=== PATIENT | female | born 1955 | race Caucasian/White ===

== ENCOUNTER 2025-02-13 11:04 | Outpatient (CLI) | payer MEDICARE, SELFPAY ==
--- NOTE | ~2025-02-13 | XR_ITS ---
EXAMINATION: XR shoulder RT min 2V, 02/13/2025 11:25 HELICOPTER MECHANIC HISTORY: M25.511 - Pain in right shoulder, NKI COMPARISON: No comparisons available. Findings: There is a remote appearing fracture of the humeral neck, no acute fracture is identified. Minimal degenerative changes. Soft tissues unremarkable. Impression: No acute fracture or malalignment. Reviewed, dictated and finalized at location P. COPTER MECHANIC Impression: No acute fracture or malalignment.
--- NOTE | ~2025-02-13 | XR_ITS ---
EXAMINATION: XR shoulder LT min 2V, 02/13/2025 11:25 RESEARCH & ANALYTICS MANAGER HISTORY: M25.512 - Pain in left shoulder , NKI COMPARISON: No comparisons available. Findings: No acute fracture or malalignment. No significant degenerative changes. Soft tissues unremarkable. Impression: No acute fracture or malalignment. Reviewed, dictated and finalized at location P. ARCH & ANALYTICS MANAGER Impression: No acute fracture or malalignment.
--- OUTSIDE RECORDS SUMMARY | 2025-02-13 11:49 | XMS_ITS | Clinical Summary ---
Author Organization [facility] Address [address] [place] [address] Care Team Providers Care Testing Machine Operator Name Role Phone Rosalie Jones Primary Care Provider [phone] Source Comments [facility],non-owned Affiliates and Associated Physician Practices is amultiple site organization consisting of ambulatory clinics and hospital sitesin [place], [place], [place] and [place]. This disclosure is being madepursuant to the Care Everywhere program and may not contain all information available regarding this patient. Last updated 17.[facility] Allergies Active Allergy Reactions Criticality Noted Date Comments Docosahexaenoic Acid, Dha Unknown 08/16/2018 Gemfibrozil Unknown 11/10/2015 Molds & Smuts Unknown 11/06/2014 Niacin Unknown 11/10/2015 Ezyeb-1-Unra Ethyl Esters Unknown 11/10/2015 Silicon Rash Medium 03/21/2019 Sulfa Drugs Urticaria Medium 04/10/2018 Medications * Be aware that medications may not be up to date on this document. Alwaysverify current medications with the patient. omeprazole (PRILOSEC) 40 MG capsule Take by mouth 2 times daily as needed 12/20/2017 Active levothyroxine (SYNTHROID) 75 MCG tablet Take by mouth once daily 12/31/2017 Active cetirizine (ZYRTEC) 10 MG tablet 04/24/2018 Active melatonin 10 MG capsule 12/04/2018 Active traZODone (DESYREL) 50 MG tablet Take 50 mg by mouth at bedtime Active VITAMIN E/D-ALPHA PO Active multivitamin daily tablet Take 1 tablet by mouth daily with food Active probiotic (PROBIOTIC) CAPS capsule Take 1 tablet by mouth once daily Active nefazodone (SERZONE) 100 MG tablet Take 100 mg by mouth 2 times daily 10/18/2019 Active vitamin B-12 (CYANOCOBALAMIN ) 1000 MCG/15ML liquid Take 1,200 mcg by mouth once daily Active Active Problems Problem Noted Date Diagnosed Date Neuropathy Cervical radiculopathy at C8 Bilateral carpal tunnel syndrome Immunizations Immunization Administration Dates Next Due INFLUENZA VACCINE 12/21/2017,03/04/2016,03/03/20 15 INFLUENZA VACCINE, QUADR. (F LUZONE; FLULAVAL; FLUARIX; AFLURIA QUADRIVALENT; 6MO+), 0.5 ML (IIV4) 12/08/2018 Zoster Hzv Vacc Recombinant Inj Im 10/28/2017 Family History Medical History Relation Name Comments None Known Brother None Known Father None Known Maternal Aunt None Known Maternal Grandfather None Known Maternal Grandmother None Known Maternal Uncle None Known Mother None Known Other None Known Paternal Aunt None Known Paternal Grandfather None Known Paternal Grandmother None Known Paternal Uncle None Known Sister Asthma Neg Hx CVA Neg Hx Cancer - Breast Neg Hx Cancer - Other Neg Hx Cancer - Skin, Melanoma Neg Hx Cancer - Skin, Non Melanoma Neg Hx Eczema Neg Hx Hemophilia Neg Hx Psoriasis Neg Hx Relation Name Status Comments Brother Father Maternal Aunt Maternal Grandfather Maternal Grandmother Maternal Uncle Mother Other Paternal Aunt Paternal Grandfather Paternal Grandmother Paternal Uncle Sister Social History Tobacco Use Types Packs/Day Years Used Date Smoking Tobacco: Never Smokeless Tobacco: Never Tobacco Cessation:Counseling Given: No Alcohol Use Standard Drinks/Week Comments No 0 (1 standard drink = 0.6 oz pur e alcohol) Comments No Sex and Gender Information Value Date Recorded Sex Assigned at Not on file Legal Sex Female 4:21 PM CDT Gender Identity Not on file Sexual Orientation Not on file Last Filed Vital Signs Vital Sign Reading Time Taken Comments Blood Pressure 139/84 01/23/2019 2:09 PM MATERIAL INSPECTOR Pulse 76 01/23/2019 2:09 PM MATERIAL INSPECTOR Temperature 36.2 C (97.2 F) 01/10/2018 8:53 AM CDT Respiratory Rate - - Oxygen Saturation - - Inhaled Oxygen Concentration - - Weight 87.5 kg (193 lb) 01/23/2019 2:09 PM MATERIAL INSPECTOR Height 172.7 cm (5' 8) 01/23/2019 2:09 PM MATERIAL INSPECTOR Body Mass Index 29.35 01/23/2019 2:09 PM MATERIAL INSPECTOR Plan of Treatment Health Maintenance Due Date Last Done Comments BONE DENSITY TESTING 1955 COLOGUARD (AGES 45-75) - COLON CA SCREENING 1956 COLON MONITORING 1956 COLONOSCOPY - COLON CA SCREENING 1956 CT COLONOGRAPHY - COLON CA SCREENING 1955 Colorectal Cancer Screening 1955 FIT - COLON CA SCREENING 1956 FLEX SIG - COLON CA SCREENING 1955 HEPATITIS C SCREENING 09/09/1974 DTAP/TDAP/TD VACCINES (1 - Tdap) 09/14/1975 PNEUMOCOCCAL VACCINE 50+ (1 of 1 - PCV) 2006 ZOSTER VACCINE (2 of 2) 12/23/2017 10/28/2017 SCREENING FOR DIABETES 02/20/2021 02/20/2018, 2017 MAMMOGRAM 09/05/2021 09/06/2019 LIPID TESTING 02/20/2023 02/20/2018 DEPRESSION SCREENING 03/21/2024 COVID-19 VACCINE ( - season) 2024 06/17/2020, 05/27/2020 INFLUENZA VACCINE (#1) 2024 , 12/08/2018, 12/21/2017, Additional history exists Respiratory Syncytial Virus (RSV) Vaccine Pt: or over 60 yrs (1 - 1-dose 75+ series) 09/14/2031 HEPATITIS B VACCINE Aged Out No longe r eligible based on patient's age to complete this topic HIB VACCINE Aged Out No longer eligi ble based on patient's age to complete this topic HPV VACCINE Aged Out No longer eligi ble based on patient's age to complete this topic MENINGOCOCCAL (Group B) VACCINE SHARED DECISION-MAKING Aged Out No longer eligible based on patient's age to complete this topic MENINGOCOCCAL GROUPS A/C/Y/W VACCINE Aged Out No longer eligible based on patient's age to complete this topic Procedures Procedure Name Priority Date/Time Associated Diagnosis Comments COMPREHENSIVE METABOLIC PANEL Routine 02/20/2018 2:23 PM MATERIAL INSPECTOR Radiculopathy of cervical region Spinal stenosis of cervical region Bilateral carpal tunnel syndrome LIPID PROFILE Routine 02/20/2018 2:23 PM [facility] Radiculopathy of cervical region Spinal stenosis of cervical region Bilateral carpal tunnel syndrome from Last 3 Months or Most Recently Relevant to Health Maintenance Results * (ABNORMAL) COMPREHENSIVE METABOLIC PANEL (02/20/2018 2:23 PM [facility]) BUN 10 7 - 26 mg/dL 02/20/2018 3:14 PM [facility] Creatinine 1.0 0.6 - 1.2 mg/dL 02/20/2018 3:14 PM [facility] Sodium 139 136 - 145 mmol/L 02/20/2018 3:14 PM [facility] Potassium 3.6 3.5 - 4.5 mmol/L 02/20/2018 3:14 PM [facility] Chloride 104 98 - 107 mmol/L 02/20/2018 3:14 PM [facility] CO2 26 22 - 29 mmol/L 02/20/2018 3:14 PM [facility] Glucose 88 70 - 115 mg/dL 02/20/2018 3:14 PM [facility] Calcium 10.3(H) 8.4 - 10.2 mg/dL 02/20/2018 3:14 PM [facility] Protein Total 7.5 6.0 - 8.3 g/dL 02/20/2018 3:14 PM [facility] Albumin 4.2 3.4 - 5.0 g/dL 02/20/2018 3:14 PM [facility] Bilirubin Total 0.9 0.2 - 1.2 mg/dL 02/20/2018 3:14 PM [facility] Alkaline Phosphatase 105 40 - 150 Units/L 02/20/2018 3:14 PM [facility] ALT 39 0 - 55 Units/L 02/20/2018 3:14 PM [facility] AST 30 5 - 34 Units/L 02/20/2018 3:14 PM [facility] Anion Gap 13 8 - 18 02/20/2018 3:14 PM [facility] BUN/Creatinine Ratio 10 7 - 23 02/20/2018 3:14 PM [facility] Osmolality Calculated 286 270 - 300 mOsm/kg 02/20/2018 3:14 PM [facility] Albumin/Globulin Ratio 1.3 1.1 - 2.3 02/20/2018 3:14 PM [facility] eGFR 56(L) >60 mL/min/1.7 3 m2 02/20/2018 3:14 PM [facility] Blood BLOOD SPECIMEN / Unknown Lab Venipuncture / Unknown 02/20/2018 2:23 PM MATERIAL INSPECTOR 02/20/2018 2:34 PM MATERIAL INSPECTOR Samia Barajas MD LAB - CHEMISTRY ORDERABLES Final Result [address] [phone] * (ABNORMAL) LIPID PROFILE (02/20/2018 2:23 PM MATERIAL INSPECTOR) Cholesterol Total 190 <200 mg/dL 02/20/2018 3:14 PM [facility] HDL 57 >40 mg/dL 02/20/2018 3:14 PM [facility] Comment: ATP III Classification of HDL Cholesterol: <40 mg/dL: Considered a major risk factor. >60 mg/dL: Considered a negative risk factor. LDL Calculated 110(H) <100 mg/dL 02/20/2018 3:14 PM [facility] Comment: ATP III Classification of LDL Cholesterol: <100 mg/dL: Optimal 100 - 129 mg/dL: Near Optimal/Above Optimal 130 - 159 mg/dL: Borderline High 160 - 189 mg/dL: High >190 mg/dL: Very High Triglycerides 115 <150 mg/dL 02/20/2018 3:14 PM [facility] Comment: ATP III Classification of Triglycerides: <150 mg/dL: Normal 150 - 199 mg/dL: Borderline High 200 - 400 mg/dL: High >500 mg/dL: Very High Blood BLOOD SPECIMEN / Unknown Lab Venipuncture / Unknown 02/20/2018 2:23 PM MATERIAL INSPECTOR 02/20/2018 2:34 PM MATERIAL INSPECTOR Samia Barajas MD LAB - CHEMISTRY ORDERABLES Final Result [facility] [address] [phone] from Last 3 Months or Most Recently Relevant to Health Maintenance Insurance [facility] MEDICARE [employer] MED[employer]ARE Care Teams Testing Machine Operator Relationship Specialty Start Date End Date Rosalie Jones DO [address] [place] [address] PCP - General Family Medicine 02/08/18
--- OUTSIDE RECORDS SUMMARY | 2025-02-13 11:49 | XMS_ITS | Encounter Summary ---
Author Organization [facility] Address [address] [place] [address] Care Team Providers Care Sheep Shearer Name Role Phone Rosalie Jones DO Primary Care Provider [phone] Rosalie Jones DO Unavailable [phone] Maria L Rutledge RN Unavailable [phone] Megan Nance MD Primary Care Provider Encounter Details Date Type Department Care Team (Late st Contact Info) Description 01/21/2020 Prep for Procedure [facility]-Ad[facility] Testing [address] [place] [id number] John Jalloh MD [address] [id number] Social History Tobacco Use Types Packs/Day Years Used Date Smoking Tobacco: Never Smokeless Tobacco: Never Alcohol Use Standard Drinks/Week Comments No 0 (1 standard drink = 0.6 oz pur e alcohol) AUDIT-C Answer Date Recorded Frequency of Alcohol Consumption Never 02/14/2018 Average Number of Drinks Not on file 018 Frequency of Binge Drinking Not on file 01/20 PHQ-2 Answer Date Recorded PHQ-2 Score 0 06/19/2018 Education Answer Date Recorded What is the highest level of school you have completed or the highest degree you have received? 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 No / Unsure 01/16/2020 12:23 PM CDT documented as of this encounter Plan of Treatment Not on file documented as of this encounter Results * (ABNORMAL) PRE-SURGICAL/PRE-PROCEDURE CORONAVIRUS (COVID 19) (01/21/2020 10:10 AM GENERAL OFFICE ASSOCIATE) CORONAVIRUS SARS COV 2 PCR (RESP) DETECTED(A) NOT DETECTED 01/22/2020 12:05 PM GENERAL OFFICE ASSOCIATE [facility] Comment: A Detected result is considered a positive test result for COVID-19. This indicates that RNA from SARS-CoV-2 (formerly 2019-nCoV) was detected, and the patient is infected with the virus and presumed to be contagious. If requested by public health authority, specimen will be sent for additional testing. Please review the Fact Sheets and FDA authorized labeling available for health care providers and patients using the following websites: https://www.[employer].com/home/Covid-19/HCP/NAAT/fact-sheet2 https://www.[employer].Acupera/home/Covid-19/Patients/NAAT/ fact-sheet2 This test has been authorized by the FDA under an Emergency Use Authorization (EUA) for use by authorized laboratories. Due to the current public health emergency, [facility] is receiving a high volume of samples from a wide variety of swabs and media for COVID-19 testing. In order to serve patients during this public health crisis, samples from appropriate clinical sources are being tested. Negative test results derived from specimens received in non-commercially manufactured viral collection and transport media, or in media and sample collection kits not yet authorized by FDA for COVID-19 testing should be cautiously evaluated and the patient potentially subjected to extra precautions such as additional clinical monitoring, including collection of an additional specimen. Methodology: Nucleic Acid Amplification Test (NAAT) includes RT-PCR or TMA Additional information about COVID-19 can be found at the [facility] website: www.[employer].Acupera/Covid19. Test performed at [facility] [address] [id number] Director: ARLEY NELSON DO,MPH FIRST TEST YES 01/21/2020 1:00 PM GENERAL OFFICE ASSOCIATE [facility] EMPLOYED IN HEALTHCARE NO 01/21/2020 1:00 PM GENERAL OFFICE ASSOCIATE [facility] SYMPTOMATIC DEFINED BY CDC NO 01/21/2020 1:00 PM GENERAL OFFICE ASSOCIATE [facility] DATE OF SYMPTOM ONSET NO 01/21/2020 1:11 PM GENERAL OFFICE ASSOCIATE [facility] HOSPITALIZATION STATUS NO 01/21/2020 1:00 PM GENERAL OFFICE ASSOCIATE [facility] PATIENT IN ICU NO 01/21/2020 1:00 PM GENERAL OFFICE ASSOCIATE [facility] UNKNOWN 01/21/2020 1:00 PM GENERAL OFFICE ASSOCIATE [facility] UNKNOWN 01/21/2020 1:11 PM GENERAL OFFICE ASSOCIATE [facility] PATIENT'S RACE WHITE OR 01/21/2020 1:00 PM GENERAL OFFICE ASSOCIATE [facility] ETHNICITY NONHISPANIC 01/21/2020 1:00 PM GENERAL OFFICE ASSOCIATE [facility] SOURCE (QST) NASOPHARYNGEAL SWAB 01/21/2020 1:00 PM GENERAL OFFICE ASSOCIATE [facility] NASOPHARYNGEAL SWAB / Unknown 01/21/2020 10:10 AM GENERAL OFFICE ASSOCIATE us John Jalloh MD MICROBIOLOGY - GENERAL ORDERA BLES Final Result [facility] [address] [place] [address], [place] [phone] [facility] [employer] [facility] [address] [address] [address], [place] documented in this encounter Visit Diagnoses Diagnosis Preoperative testing- Primary Preoperative examination, unspecified documented in this encounter Additional Health Concerns Infection Onset Date Last Indicated Resolved Time COVID-19 Rule Out 01/21/2020 01/21/2020 01/22/2020 12:05 PM GENERAL OFFICE ASSOCIATE COVID-19 Confirmed Comment:Resolved as 10 days symptom free for surgery 01/21/2020 01/21/2020 02/20/2020 12:02 PM GENERAL OFFICE ASSOCIATE documented as of this encounter Care Teams Sheep Shearer Relationship Specialty Start Date End Date Rosalie Jones DO [address] [place] [address] PCP - General FAMILY PRACTICE 03/31/18 11/18/20 Megan Nance MD [address] [place] [address] PCP - General INTERNAL MEDICINE 11/19/20 Rosalie Jones DO [address] [place] [address] FAMILY PRACTICE 03/31/18 11/18/20 Maria L Rutledge, RN [address] [facility] [address] [place] [address] Banquet Attendant (Ambulatory) REGISTERED NURSE 11/15/19 11/18/20 documented as of this encounter
--- OUTSIDE RECORDS SUMMARY | 2025-02-13 11:49 | XMS_ITS | Encounter Summary ---
Author Organization [facility] Address [address] [place] [address] Care Team Providers Care Social Worker Assistant Name Role Phone Rosalie Jones DO Primary Care Provider [phone] Rosalie Jones DO Unavailable [phone] Maria L Rutledge RN Unavailable [phone] Megan Nance MD Primary Care Provider [phone] Encounter Details Date Type Department Care Team (Late st Contact Info) Description 10/05/2019 CustExt Message Enc [facility] Family Medicine - [place] [address] [place] [address] Rosalie Jones DO [address] [place] [address] RE: Question Social History Tobacco Use Types Packs/Day Years [...] degree (e.g., MA, MS, Abbie, MEd, WATER SOFTENER SERVICE SUPERVISOR, GAIL) 05/25/2018 Comments No Sex and Gender Information Value Date Recorded Sex Assigned at Not on file Legal Sex Female 8:02 PM CDT Gender Identity Not on file Sexual Orientation Not on file COVID-19 Exposure Response Date Recorded In the last month, have you been in contact with someone who was confirmed or suspected to have Coronavirus / COVID-19? Unable to assess 10/05/2019 11:00 AM CDT documented as of this encounter Plan of Treatment Not on file documented as of this encounter Visit Diagnoses Not on filedocumented in this encounter Additional Health Concerns Infection Onset Date Last Indicated Resolved Time COVID-19 Rule Out 11/07/2019 11/07/2019 11/09/2019 3:08 AM CDT COVID-19 Rule Out 01/21/2020 01/21/2020 01/22/2020 12:05 PM PARAKEET RAISER COVID-19 Confirmed Comment:Resolved as 10 days symptom free for surgery 01/21/2020 01/21/2020 02/20/2020 12:02 PM PARAKEET RAISER documented as of this encounter Care Teams Social Worker Assistant Relationship Specialty Start Date End Date Rosalie Jones DO [address] [place] [address] PCP - General FAMILY PRACTICE 03/31/18 11/18/20 Megan Nance MD [address] [place] [address] PCP - General INTERNAL MEDICINE 11/19/20 Rosalie Jones DO [address] [place] [address] FAMILY PRACTICE 03/31/18 11/18/20 Maria L Rutledge, RN [address] [place] [address] Assembly Line Robot Operator (Ambulatory) REGISTERED NURSE 11/15/19 11/18/20 documented as of this encounter
--- OUTSIDE RECORDS SUMMARY | 2025-02-13 11:49 | XMS_ITS | Clinical Summary ---
Author Organization [facility] Address [address] [place] [address] Care Team Providers Care Analytical Technician Name Role Phone Megan Faust MD Primary Care Provider [phone] Allergies Active Allergy Reactions Criticality Noted Date Comments Cefdinir Rash Low 11/05/2019 Gemfibrozil Nausea Only 11/10/2015 Guanfacine Other (see comment) 03/02/2018 sleepiness, weight gain, and nose bleed. Molds & Smuts Unknown 11/06/2014 Niacin Unknown 08/16/2018 Niacin Er (Antihyperlipidemic) Unknown 11/10/2015 Nickel Swelling Silicon Rash Low 01/15/2020 Sulfa Antibiotics Hives Medium 04/10/2018 Sulfamethoxazole-Trimet hoprim Unknown,GI Upset Low 03/28/2017 stomach issue Medications trazodone 50 MG tablet Take 50 mg by mouth nightly at bedtime. 06/30/19 18 Active Probiotic Product (PROBIOMAX DAILY DF OR) Take 1 tablet by mouth daily. Active Cyanocobalamin (VITAMIN B-12) 1000 MCG/15ML Liquid Place 1,200 mcg under the tongue daily. Active Melatonin 10 MG Cap Take 10 mg by mouth nightly as needed (insomnia). Active omeprazole 40 MG capsuleIndications :Gastroesophageal reflux disease without esophagitis Take 1 capsule (40 mg total) by mouth 2 (two) times daily. 180 capsule 3 11/21/19 20 Active Additional Information Patient taking differently:40 mg OralDaily, Reported on 11/27/2019 Minoxidil (ROGAINE) 2 % Solution Apply topically daily as needed. Active Multiple Vitamin (DAILY VITAMIN OR) Take 1 tablet by mouth daily. Active calcium-vitamin D-vitamin K 500-500-40 MG-UNT-MCG Chew Tab Chew 1 tablet by mouth daily. Active levothyroxine 75 MCG tabletIndications: Acquired hypothyroidism Take 1 tablet (75 mcg total) by mouth daily. 90 tablet 2 04/30/19 Active desvenlafaxine ER 25 MG TABLET SR 24 HR 24 hr tablet 04/22/19 Active famotidine 20 MG tablet 06/03/19 Active ketorolac 0.5 % ophthalmic solution 06/10/19 21 Active ofloxacin 0.3 % ophthalmic solution 06/10/19 Active prednisoLONE acetate 1 % ophthalmic suspension SHAKE LIQUID AND INSTILL 1 DROP SURGICAL EYE THREE TIMES DAILY BEGINNING AFTER SURGERY 06/10/19 21 Active hydrOXYzine 10 MG tablet 08/29/19 21 Active Cyclobenzaprine HCl (CYCLOBENZAPRINE 20 TD) 09/13/19 21 Active COMPRESSION STOCKINGSIndicatio ns:Fibromyalgia Wear daily as needed for swelling 6 Container 3 10/17/19 Active Active Problems Problem Noted Date Diagnosed Date Lumbar radiculopathy 09/18/2020 Headache 06/16/2020 GERD with apnea 06/16/2020 Sinusitis 06/16/2020 Heart palpitations 12/08/2018 Overview (12/08/2018): had about a month ago Cervical radiculopathy 05/25/2018 Overview (05/25/2018): Added automatically from request for surgery [id number] Neuropathy 04/20/2018 Cervical radiculopathy at C8 04/20/2018 Bilateral carpal tunnel syndrome 04/20/2018 Strain of tendon of lower back 12/23/2017 Chronic fatigue and malaise 09/16/2017 Excessive sweating 09/16/2017 Nausea 09/16/2017 Vertigo 09/16/2017 AMERICA (obstructive sleep apnea) 08/24/2017 BMI 29.0-29.9,adult 07/18/2017 Daytime somnolence 06/29/2017 Insomnia 06/29/2017 Paresthesia and pain of both upper extremities 0 06/29/2017 Cyst, ovarian 06/08/2017 Memory difficulties 06/08/2017 Thoracic outlet syndrome 06/08/2017 Fatigue, unspecified type 04/22/2016 Chronic pain of both wrists 11/26/2015 Fibromyalgia 11/10/2015 De Quervain's tenosynovitis 02/18/2015 Overview (02/11/2018): Transitioned From: Tendonitis Pes equinus, acquired 01/14/2015 Osteoporosis 12/24/2014 Overview (02/11/2018): Transitioned From: Osteopenia Osteoarthritis of left knee, unspecified osteoarthritis type 12/12/2014 Anxiety disorder 11/07/2014 Gastroesophageal reflux disease 11/07/2014 Hypothyroidism 11/07/2014 IBS (irritable bowel syndrome) 11/07/2014 Major depression, recurrent 11/07/2014 Resolved Problems Problem Noted Date Diagnosed Date Resolved Date Surgical followup 05/17/2018 08/22/2018 Other closed extra-articular fracture of distal end of left radius, initial encounter 03/31/2018 08/22/2018 Hypertension 12/21/2017 06/16/2020 Postmenopausal bleeding 10/04/2017 0606/2018 Urinary, incontinence, stress female 10/04/2017 06/16/2020 Sleep disorder 07/18/2017 08/22/2018 Talipes calcaneovalgus 01/14/201508/22 Immunizations Immunization Administration Dates Next Due Fluzone 6 Months+ Quad (0.5 mL Prefilled Syringe) 12/08/2018 Influenza (Generic) 12/21/2017,03/04/2016,2014 Influenza Adult (Generic) 12/25/2019,05/2017,03/04/2016,2014 PFIZER COVID-19 (ORIGINAL FORMULATION, PURPLE CAP) mRNA, LNP-S, PF, 30 MCG/0.3 ML DOSE 06/17/2020,05/27/2020 Shingrix 10/28/2017 Family History Medical History Relation Comments Alzheimers Father COPD Father Cancer Father lung Heart Attack Father Heart Disease Father mi Hypertension Father Lung Cancer Father Open Heart Father Stroke Father Diabetes Maternal Grandfather Lung Cancer Maternal Grandfather Alzheimers Maternal Grandmother Colon Cancer Maternal Grandmother Diabetes Maternal Grandmother Heart Disease Maternal Grandmother Stroke Maternal Grandmother Alzheimers Mother Heart Disease Mother afib Hypertension Mother Parkinson's Disease Mother Stroke Mother No Known Problems Sister Relation Status Comments Father (Age 81) Maternal Grandfather Maternal Grandmother Mother Alive Sister Alive atrial fibrillat ion Social History Tobacco Use Types Packs/Day Years [...] 01/20 PHQ-2 Answer Date Recorded PHQ-2 Score - If the patient scores above 3, please move on to questions 3-9 6 06/16/2020 Education Answer Date Recorded What is the highest level of school you have completed or the highest degree you have received? 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 Not on file Not on file Last Filed Vital Signs Vital Sign Reading Time Taken Comments Blood Pressure 134/82 10/14/2020 12:12 PM CDT Pulse 70 10/14/2020 12:06 PM CDT Temperature 36.3 C (97.4 F) 10/14/2020 11:47 AM CDT Respiratory Rate 20 10/14/2020 12:06 PM CDT Oxygen Saturation 97% 10/14/2020 12:06 PM CDT Inhaled Oxygen Concentration - - Weight 89.1 kg (196 lb 6.4 oz) 10/14/2020 11:47 AM CDT Height 172.7 cm (5' 8) 10/14/2020 11:47 AM CDT Body Mass Index 29.86 10/14/2020 11:47 AM CDT Plan of Treatment Health Maintenance Due Date Last Done Comments DTaP, Tdap and Td Vaccines (1 - Tdap) 09/14/1975 Pneumococcal Vaccine: 50+ Years (2 of 2 - PCV) 01/30/2013 01/31/2012 Zoster Vaccines (2 of 2) 02/22/2018 12/28/2017, 10/19 Annual Medicare Wellness Visit 2021 Mammogram Screening 07/24/2024 07/24/2022, 11/19/2020, 09/06/2019, Additional history exists COVID-19 Vaccine ( season) 2024 06/17/2020, 05/27/2020 Influenza Adult (#1) 2024 01/01/2022, 02/16/2021, 12/25/2019, Additional history exists Colorectal Cancer Screening Colonoscopy (10 Years) 11/24/2026 11/24/2016 RSV Immunization or 60+ Years (1 - 1-dose 75+ series) 09/14/2031 Hepatitis C Completed 11/04/2020, 11/21/2014 Dexa Scan (General) Completed 06/26/2021, 06/26/2021, 12/30/2014 Hepatitis A Vaccines Aged Out No long er eligible based on patient's age to complete this topic Meningococcal B Vaccine Aged Out No l onger eligible based on patient's age to complete this topic Meningococcal Vaccine Aged Out No carole laila eligible based on patient's age to complete this topic RSV Immunizations Under 20 Months Aged Out No longer eligible based on patient's age to complete this topic Medical Devices Implanted Type Area Cardiovascular Disease Specialist Device Identifier Shelf Expiration Date Model / Serial / Lot Arthrex Volar Distal Radius Plates, Narrow Left Implanted:Qty: 1 on 04/04/2018 by Lee Roland MD at [facility] Plate Left: Radius [employer] [id number]- 03 / / [id number]- 03 Arthrex 3.5mm Low Profile Screw, Non-Locking, Titanium, Cortical Implanted:Qty: 2 on 04/04/2018 by Lee Roland MD at [facility] Screw Left: Radius [employer] AR-8935-14 / [id number] / AR-[id number] Arthrex 2.4mm Yohana Screws, Titanium, Locking Implanted:Qty: 2 on 04/04/2018 by Lee Roland MD at [facility] Screw Left: Radius [employer] AR-8724V-14 / / [id number]-14 Arthrex 2.4mm Yohana Screws, Titanium, Locking Implanted:Qty: 2 on 04/04/2018 by Lee Roland MD at [facility] Screw Left: Radius [employer] AR-8724V-16 / / [id number]-16 Arthrex 2.4mm Yohana Screws, Titanium, Locking Implanted:Qty: 1 on 04/04/2018 by Lee Roland MD at [facility] Screw Left: Radius [employer] AR-8724V-18 / / [id number]-18 Arthrex 2.4mm Yohana Screws, Titanium, Locking Implanted:Qty: 1 on 04/04/2018 by Lee Roland MD at [facility] Screw Left: Radius [employer] AR-8724V-20 / / [id number]-20 Arthrex 3.5mm Low Profile Screw, Non-Locking, Titanium, Cortical Implanted:Qty: 1 on 04/04/2018 by Lee Roland MD at [facility] Screw Left: Radius [employer] AR-8935-16 / / [id number] Procedures Procedure Name Priority Date/Time Associated Diagnosis Comments MG SCREENING W MALLY LEOPOLDO DIGI Routine 07/24/2022 3:00 PM CDT Encounter for screening mammogram for malignant neoplasm of breast COLONOSCOPY Routine 11/24/2016 12:00 AM CDT BONE DENSITY/DEXA Routine 12/30/2014 10: 08 AM CDT HEPATITIS C ANTIBODY Routine 11/21/2014 8:46 AM CDT from Last 3 Months or Most Recently Relevant to Health Maintenance Results * MG SCREENING W MALLY LEOPOLDO DIGI (07/24/2022 3:00 PM CDT) Anatomical Region Laterality Modality Breast Bilateral Mammography 07/26/2022 6:08 PM CDT Narrative 07/26/2022 6:11 PM CDT Examination: Screening bilateral mammogram with 3-D tomosynthesis Clinical history: No family history of breast cancer. No present breast related complaints. Comparison: 11/19/2020, 09/06/2019, 03/06/2019, 08/30/2018, 08/18/2018, 02/07/2017 Technique: Digital screening mammography of both breasts was performed. 3-D tomosynthesis technique was also performed. This study was read with the assistance of computer-aided detection system. Tissue density: The breast tissue is heterogeneously dense, which may obscure small masses. Findings: No suspicious masses, malignant appearing calcifications, skin thickening or other abnormalities are present. No significant change from the prior exam. IMPRESSION: No suspicious mammographic findings. Recommendation: 1. Routine Screening, Bilateral Assessment: ACR BI-RADS 2 - BENIGN FINDING(S) Comments: A negative or benign mammography report should not delay follow-up or biopsy of a clinically significant finding or palpable abnormality. Regions of dense breast tissue may obscure findings on mammogram. Ordered By: MEGAN FAUST Interpreted By: Vlad Bartlett MD, 07/26/2022 6:08 PM Megan Faust MD MAMMO Final Result * Colonoscopy (11/24/2016 12:00 AM CDT) 11/24/2016 11/24/2016 Narrative [facility] TO EPIC CONVERSION - 11/24/2016 12:00 AM CDT Documented hx of procedure Procedure Note , Generic ConversionMD - 01/22/2018 Documented hx of procedure us Generic Conversion Md [facility] PROCEDURE ORDERABLES Final Result [facility] TO EPIC CONVERSION * BONE DENSITY/DEXA (12/30/2014 10:08 AM CDT) Anatomical Region Laterality Modality Bone Bone Density 12/30/2014 10:0 8 AM CDT 12/30/2014 10:08 AM CDT Narrative 12/30/2014 10:13 AM CDT NGA CRAIG ADMIT/SERVICE DATE: 12/30/14 ACCT: [id number] DISCHARGE DATE: : 1955 SEX: F ORD SITE: [facility] PT TYPE: REG CLI ORDERING MD: SHEY FERNANDEZ MD STUDY DATE REPORT # ORDER # EXT ORDER ID 12/30/14 [id number] PROC CODE: BONEDENSAX PROCEDURE DESCRIPTION: XR BONE DENSITY AXIAL IMPRESSION: EXAMINATION: BONE DENSITY AXIAL EXAM DATE/TIME: 12/30/2014 9:30 AM CLINICAL HISTORY: POSTMENOPAUSAL COMPARISON: NONE FINDINGS: DEXA BONE DENSITOMETRY THE BONE MINERAL DENSITY (BMD) WAS DETERMINED BY DUAL-ENERGY X-RAY ABSORPTIOMETRY, THE RESULTS ARE FOLLOWS: AP LUMBAR SPINE L2 THROUGH L4 BMD PATIENT (GM/SQCM): 1.144 T-SCORE (STANDARD DEVIATIONS FROM YOUNG ADULT PEAK BONE DENSITY): -0.5 BILATERAL FEMORAL NECK: BMD PATIENT (GM/SQCM): 0.83 T-SCORE (STANDARD DEVIATIONS FROM YOUNG ADULT PEAK BONE DENSITY): -0.8 TOTAL FEMUR: BMD PATIENT (GM/SQCM): 0.900 T-SCORE (STANDARD DEVIATIONS FROM YOUNG ADULT PEAK BONE DENSITY): -0.8 LUMBAR SPINE BONE DENSITY: NORMAL FEMUR BONE DENSITY: NORMAL ELECTRONICALLY SIGNED BY: DOMINIK RODRIGUEZ12/30/2014 10:09 AM Procedure Note Amrita Muro MD - 01/12/2018 NGA CRAIG ADMIT/SERVICE DATE:12/30/14 ACCT: [id number] DISCHARGE DATE: : 1955 SEX: F ORD SITE: [facility] PT TYPE: REG CLI ORDERING MD:SHEY FERNANDEZ MD STUDY DATE REPORT # ORDER # EXT ORDER ID 12/30/14 [id number] PROC CODE: BONEDENSAX PROCEDURE DESCRIPTION: XR BONE DENSITY AXIAL IMPRESSION: EXAMINATION: BONE DENSITY AXIAL EXAM DATE/TIME: 12/30/2014 9:30 AM CLINICAL HISTORY: POSTMENOPAUSAL COMPARISON: NONE FINDINGS: DEXA BONE DENSITOMETRY THE BONE MINERAL DENSITY (BMD) WAS DETERMINED BY DUAL-ENERGY X-RAY ABSORPTIOMETRY, THE RESULTS ARE FOLLOWS: AP LUMBAR SPINE L2 THROUGH L4 BMD PATIENT (GM/SQCM): 1.144 T-SCORE (STANDARD DEVIATIONS FROM YOUNG ADULT PEAK BONE DENSITY): -0.5 BILATERAL FEMORAL NECK: BMD PATIENT (GM/SQCM): 0.83 T-SCORE (STANDARD DEVIATIONS FROM YOUNG ADULT PEAK BONE DENSITY): -0.8 TOTAL FEMUR: BMD PATIENT (GM/SQCM): 0.900 T-SCORE (STANDARD DEVIATIONS FROM YOUNG ADULT PEAK BONE DENSITY): -0.8 LUMBAR SPINE BONE DENSITY: NORMAL FEMUR BONE DENSITY: NORMAL ELECTRONICALLY SIGNED BY: DOMINIK RODRIGUEZ12/30/2014 10:09 AM Shey Fernandez MD DEXA Final Res ult * HEPATITIS C ANTIBODY (11/21/2014 8:46 AM CDT) [facility] HEPATITIS C AB NON-REACTIVE TESTING [place] [address] NR [facility] TO EPIC CONVERSION 11/21/2014 8:46 AM CDT 11/21/2014 8:46 AM CDT Narrative [facility] TO EPIC CONVERSION - 11/22/2014 5:35 PM CDT Result Communication: Discussed results with patient Shey Fernandez MD LABORATORY Final Res ult [facility] TO EPIC CONVERSION from Last 3 Months or Most Recently Relevant to Health Maintenance Insurance [employer] [facility] Member Subscriber Plan / Payer ( fective 2017-Present) Name:Nga Craig Relation to Subscriber:Self Name:Nga Craig Payer ID:Not on file Type:Not on file Address: [place] [id number] [facility] Member Subscriber Plan / Payer ( fective 2017-Present) Name:Nga Craig Relation to Subscriber:Self Name:Nga Craig Payer ID:Not on file Type:Not on file Address: [place] [id number] Advance Directives Documents on File Type Date Recorded Patient Can Striper Expl anation Power of Information Resources Director 02/21/2020 9:56 AM Care Teams Analytical Technician Relationship Specialty Start Date End Date Megan Faust MD PCP - General INTERNAL MEDICINE 11/19/20
--- OUTSIDE RECORDS SUMMARY | 2025-02-13 11:49 | XMS_ITS | Encounter Summary ---
Author Organization [facility] Address [address] [place] [address] Care Team Providers Care Aircraft Systems Repairer Name Role Phone Rosalie Jones DO Primary Care Provider [phone] Rosalie Jones DO Unavailable [phone] Maria L Rutledge RN Unavailable [phone] Megan Nance MD Primary Care Provider [phone] Encounter Details Date Type Department Care Team (Late st Contact Info) Description 04/04/2019 [employer] Message Enc [facility] Family Medicine - [place] [address], [address] [place] [address] Rosalie Jones DO [address] [place] [address] RE: Question Social History Tobacco Use Types [...] Master's degree (e.g., MA, MS, Abbie, MEd, FORM SETTER STEEL PAN FORMS, GAIL) 05/25/2018 Comments No Sex and Gender Information Value Date Recorded Sex Assigned at Not on file Legal Sex Female 8:02 PM CDT Gender Identity Not on file Sexual Orientation Not on file documented as of this encounter Progress Notes * Rosalie Jones DO - 04/06/2019 1:30 PM CST So we have not actually specifically tested Sjogren's as a lab test. Usually she will have elevatedinflammatory markers but we can do the specific blood tests for Sjogren's. I'll place the order ER SULFATE documented in this encounter Plan of Treatment Not on file documented as of this encounter Visit Diagnoses Not on filedocumented in this encounter Additional Health Concerns Infection Onset Date Last Indicated Resolved Time COVID-19 Rule Out 11/07/2019 11/07/2019 11/09/2019 3:08 AM CDT COVID-19 Rule Out 01/21/2020 01/21/2020 01/22/2020 12:05 PM COOKER SULFATE COVID-19 Confirmed Comment:Resolved as 10 days symptom free for surgery 01/21/2020 01/21/2020 02/20/2020 12:02 PM COOKER SULFATE documented as of this encounter Care Teams Aircraft Systems Repairer Relationship Specialty Start Date End Date Rosalie Jones DO [address] [place], [place] [address] PCP - General FAMILY PRACTICE 03/31/18 11/18/20 Megan Nance MD [address] [place] [address] PCP - General INTERNAL MEDICINE 11/19/20 Rosalie Jones DO [address] [place] [address] FAMILY PRACTICE 03/31/18 11/18/20 Maria L Rutledge RN [address] [place] [address] Diesel Pile Driver Operator (Ambulatory) REGISTERED NURSE 11/15/19 11/18/20 documented as of this encounter
--- OUTSIDE RECORDS SUMMARY | 2025-02-13 11:49 | XMS_ITS | Encounter Summary ---
Author Organization [facility] Address [address] [place] [address] Care Team Providers Care Bank Accountant Name Role Phone Elliott Trivedi MD Unavailable [phone] Samia Barajas MD Unavailable Jarad Cardoza MD Unavailable [phone] Viv Starks MD Primary Care Provider [phone] Power Gaston MD Unavailable [phone] Ximena Schultz NP Primary Care Provider [phone] Encounter Details Date Type Department Care Team (Late st Contact Info) Description 01/09/2025 Results Follow-Up [facility] Internal Medicine [address] [place] [phone] Viv Starks MD [address] [place] [id number] Lipid panel, TSH, T4, free, Additional followed-up results: 4 Social History Tobacco Use Types Packs/Day Years Used Date Smoking Tobacco: Never Passive Smoke Exposure: Never Smokeless Tobacco: Never Alcohol Use Standard Drinks/Week Comments Yes 0 (1 standard drink = 0.6 oz pur e alcohol) AUDIT-C Answer Date Recorded Q1: How often do you have a drink containing alcohol? Never 07/09/2024 Q2: How many drinks containi ng alcohol do you have on a typical day when you are drinking? Patient does not drink Q3: How often do you have si x or more drinks on one occasion? Never 07/09/2024 PHQ-2 Answer Date Recorded PHQ-2 Total Score (If total score is 3 or more points, staff should administer the PHQ-9) 3 07/18/2024 PHQ-9 Answer Date Recorded PHQ-9 Total Score 15 07/18/2024 Personal Safety Answer Date Recorded Have you ever been in or are you currently in a harmful physical or emotional relationship or is someone making you feel afraid or unsafe? Denies 03/11/2024 Comments No Sex and Gender Information Value Date Recorded Sex Assigned at Not on file Legal Sex Female 4:54 AM SUPERINTENDENT AMMUNITION STORAGE Gender Identity Not on file Sexual Orientation Not on file documented as of this encounter Plan of Treatment Not on file documented as of this encounter Goals Goal Patient Goal Type Associated Problems Recent Progress Patient-Stated? Author Short-term Goal 1A: (New) Pt to identify 3 ways in which her medical/physical health conditions negatively impact her emotional/mental health conditions (and vice versa). Care Plan Problem 1: Problems with health conditions No Kaylee Griffin LCSW Note: Short-term Goal 1A: Pt to identify 3 ways in which her medical/physical health conditions negatively impact her emotional/mental health conditions (and vice versa). Start date 01/29/2022 - Initial expected end date 02/26/2022 Short-term Goal 2A: (New) Pt to identify and report 3 ways in which she grieves the life quality she would have had/might have had if she did not have these medical/physical health conditions. Care Plan Problem 2: Problems with grief and loss No Kaylee Griffin LCSW Note: Short-term Goal 2A: Pt to identify and report 3 ways in which she grieves the life quality she would have had/might have had if she did not have these medical/physical health conditions. Start date 01/29/2022 Initial Expected End Date: 02/26/2022 documented as of this encounter Visit Diagnoses Not on filedocumented in this encounter Additional Health Concerns Active Problems Noted Date Diagnosed Date Problem 1: Problems with health conditions 02/22 Note: Problem 1: Problems with health conditions Onset date 02/19/2022 Problem 1 STATEMENT Pt is challenged with 43 medical/health conditions. Including from [facility] Pts chart: Cardiac & Vasculature, Endocrine & Metabolic, ENT, Gastro-intestinal & Abdominal, Musculoskeletal & Injuries, Genitourinary & Reproductive , Neurological, Pulmonary & Pneumonia, Sleep, Other: Fatigue, Chronic Fatigue & Malaise, Chest Pressure, Abnormal CT of Chest and Chronic Excessive Sweating. These health conditions negatively impact emotional/mental health and functional ability. Due to symptoms of : _x_Depression _x__ Anxiety _x_Psychosis ___Emotional Dysregulation ___Other: See list of medical/health conditions. As Evidenced by Depression sx: sleep habits affected and memory difficulties. Pt self-rated Depression intensity level as ranging from 3-to-4 on the 1-to-10pt high scale. As Evidenced by Anxiety sx: concentration problems. Pt self-rated Anxiety intensity level as ranging from 3-to-4 on the 1-to-10pt high scale. As Evidenced by Anger sx: Pt self-rated Anger intensity level as ranging from 2-to-3 on the 1-to-10pt high scale. As complicated by Physical Pain sx: Pt self-rated Physical Pain intensity level as ranging from 5-to-6 on the 1-to-10pt high scale. Well Service Floorperson Goal/Discharge Criteria: Patient to better adjust to her health problems especially with increased awareness of the degree to which they negatively impact emotoinal mental health: Depression, Anxiety, Anger symptoms and intensity levels. Pt will significantly reduce the overall frequency and intensity of psychiatric condition symptoms and improve daily functioning ability. Pt to learn, practice and apply coping skills to better manage her emotional/mental psychiatric condition. Discharge: Review for discharge in 90 days (June 17, 2022). 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 Psychophysiological Insomnia Neurological R53.83 Chronic Fatigue R53.82 Chronic Fatigue and Malaise R07.89 Chest Pressure [address]93[address] of the Chest R61 Chronic Excessive Sweating Problem 2: Problems with grief and loss 02/23/20 22 Note: Problem 2: Problems with grief & loss Onset date 02/19/2022 Problem 2 STATEMENT Pt has been diagnosed and treated for multiple psychiatric conditions for decades. Pt has experienced the challenges inherent with 43 medical/health conditions. Including from [facility] Pts chart: Cardiac & Vasculature, Endocrine & Metabolic, ENT, Gastro-intestinal & Abdominal, Musculoskeletal & Injuries, Genitourinary & Reproductive , Neurological, Pulmonary & Pneumonia, Sleep, Other: Fatigue, Chronic Fatigue & Malaise, Chest Pressure, Abnormal CT of Chest and Chronic Excessive Sweating. The consequences of these conditions have profoundly affected the ability to which this Pt has been able to fully participate and enjoy in life to the degree which would have been possible without these conditions. Grief for current impact of physical health on emotional/mental well-being added to the loss of the potential life chances/life choices Pt would have enjoyed without these 41 conditions (and on-going complications) is the area of focus in treatment and recovery. Pts ability to accept and adjust is high; Pt is intelligent and insightful. Some of the grief/loss has been acknowledged and expressed; Pt encouraged to continue to explore, identify and report continued processing of this profound grief/loss through HOPS tx. Due to symptoms of : _x_Depression _x__ Anxiety _x_Psychosis ___Emotional Dysregulation ___Other: See list of medical/health conditions. As Evidenced by Depression sx: sleep habits affected and memory difficulties. Pt self-rated Depression intensity level as ranging from 3-to-4 on the 1-to-10pt high scale. As Evidenced by Anxiety sx: concentration problems. Pt self-rated Anxiety intensity level as ranging from 3-to-4 on the 1-to-10pt high scale. As Evidenced by Anger sx: Pt self-rated Anger intensity level as ranging from 2-to-3 on the 1-to-10pt high scale. As complicated by Physical Pain sx: Pt self-rated Physical Pain intensity level as ranging from 5-to-6 on the 1-to-10pt high scale. Assisted Goal/Discharge Criteria: Patient to better adjust to her health problems especially with increased awareness of the degree to which they negatively impact emotoinal mental health: Depression, Anxiety, Anger symptoms and intensity levels. Pt will significantly reduce the overall frequency and intensity of psychiatric condition symptoms and improve daily functioning ability. Pt to learn, practice and apply coping skills to better manage her emotional/mental psychiatric condition. Discharge: Review for discharge in 90 days (June 17, 2022). 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 Psychophysiological Insomnia Neurological R53.83 Chronic Fatigue R53.82 Chronic Fatigue and Malaise R07.89 Chest Pressure R93.[address] of the Chest R61 Chronic Excessive Sweating documented as of this encounter Care Teams Bank Accountant Relationship Specialty Start Date End Date Viv Starks MD [address] [facility] [address] [place] [address] PCP - General Internal Medicine 04/08/23 01/15/25 Ximena Schultz NP [address] [facility] [address] [place] [address] PCP - General Internal Medicine 01/16/25 Elliott Trivedi MD [address] [facility] [address] [place] [address] Consulting Physician Rheumatology 11/26/20 Samia Barajas MD [address] [facility] [address] [place] [address] Referring Physician Neurology 11/26/20 Jarad Cardoza MD [address] [facility] [address] [place] [address] Referring Physician Internal Medicine 11/26/20 Power Gaston MD [address] [place] [address] Referring Physician Psychiatry 03/02/24 Sherrie Chase, [facility] [address] [place] [address] Dry Cleaning Manager Infectious Diseases 03/08/22 documented as of this encounter
--- OUTSIDE RECORDS SUMMARY | 2025-02-13 11:49 | XMS_ITS | Encounter Summary ---
Author Organization [facility] Address [address] [place] [address] Care Team Providers Care Cytotechnologist Name Role Phone Rosalie Jones DO Primary Care Provider [phone] Rosalie Jones DO Unavailable [phone] Maria L Rutledge RN Unavailable [phone] Megan Nance MD Primary Care Provider [phone] Encounter Details Date Type Department Care Team (Late st Contact Info) Description 09/23/2020 Visioneered Image Systemst Message Enc [facility] Medical Group Multispecialty Care - [facility] [address] [facility], [address] [place] [address] Og Klein MD RE: Other Social History Tobacco Use Types Packs/Day Years [...] Master's degree (e.g., MA, MS, Abbie, MEd, DEAN OF FACULTY, GAIL) 05/25/2018 Comments No Sex and Gender [...] have Coronavirus / COVID-19? No / Unsure 09/17/2020 4:24 PM CDT documented as of this encounter Progress Notes * Anais Mast MA - 09/23/2020 2:28 PM CDT I put this on Dr. Klein's desk to review documented in this encounter Plan of Treatment Not on file documented as of this encounter Visit Diagnoses Not on filedocumented in this encounter Additional Health Concerns Assessment Noted Time PHQ-9 Depression Total Score: 17 021 8:23 AM CDT documented as of this encounter Care Teams Cytotechnologist Relationship Specialty Start Date End Date Rosalie Jones DO [address] [place] [address] PCP - General FAMILY PRACTICE 03/31/18 11/18/20 Megan Nance MD [address] [place] [address] PCP - General INTERNAL MEDICINE 11/19/20 Rosalie Jones DO [address] [place] [address] FAMILY PRACTICE 03/31/18 11/18/20 Maria L Rutledge, RN [address] [place] [address] Preschool Paraprofessional (Ambulatory) REGISTERED NURSE 11/15/19 11/18/20 documented as of this encounter
--- OUTSIDE RECORDS SUMMARY | 2025-02-13 11:49 | XMS_ITS | Encounter Summary ---
Author Organization [facility] Address [address] [place] [address] Care Team Providers Care Drop Hammer Pile Driver Operator Name Role Phone Rosalie Jones DO Primary Care Provider [phone] Rosalie Jones DO Unavailable [phone] Maria L Rutledge RN Unavailable [phone] Megan Nance MD Primary Care Provider [phone] Reason for Referral * Surgical (Routine) - Closed Specialty Diagnoses / Procedures Referred By Jesus lawton Referred To Contact Procedures Case request operating room: INJECTION EPIDURAL STEROID CERVICAL C5-6 Jo Fallon NP [address] [facility] [address] [place] [address] Phone: tel: [phone] fax: Referral ID Status Reason Start Date Expiration Date Visits Re quested Visits Authorized [id number] Closed 09/18/2020 10/19/2021 1 1 Encounter Details Date Type Department Care Team (Late st Contact Info) Description 09/18/2020 Prep for Procedure [facility] [place], [place] [id number] Jo Fallon NP [address] [facility] [address] [place] [phone] (Work) Social History Tobacco Use Types Packs/Day Years [...] Master's degree (e.g., MA, MS, Abbie, MEd, WINDOW GLAZIER, GAIL) 05/25/2018 Comments No Sex and Gender [...] as of this encounter Plan of Treatment Scheduled Orders Name Type Priority Associated Diagnoses Orde r Schedule Case request operating room: INJECTION EPIDURAL STEROID CERVICAL C5-6 Case Request Routine Once for 1 Occur rences starting 09/18/2020 until 09/18/2020 documented as of this encounter Visit Diagnoses Not on filedocumented in this encounter Additional Health Concerns Assessment Noted Time PHQ-9 Depression Total Score: 17 021 8:23 AM CDT documented as of this encounter Care Teams Drop Hammer Pile Driver Operator Relationship Specialty Start Date End Date Rosalie Jones DO [address] [place] [address] PCP - General FAMILY PRACTICE 03/31/18 11/18/20 Megan Nance MD [address] [place] [address] PCP - General INTERNAL MEDICINE 11/19/20 Rosalie Jones DO [address] [place] [address] FAMILY PRACTICE 03/31/18 11/18/20 Maria L Rutledge, RN [address] [facility] [address] [place] [address] Carpenter Maintenance (Ambulatory) REGISTERED NURSE 11/15/19 11/18/20 documented as of this encounter
--- OUTSIDE RECORDS SUMMARY | 2025-02-13 11:49 | XMS_ITS | Encounter Summary ---
Author Organization [facility] Care Team Providers Care Engraver Pantograph Name Role Phone No, Physician Primary Care Provider [phone] Rosalie Jones MD Primary Care Provider [phone] Rosalie Jones MD Primary Care Provider [phone] Elliott Trivedi MD Unavailable [phone] Samia Barajas MD Unavailable Jarad Cardoza MD Unavailable [phone] Macy Bailon DPT Unavailable [phone] Kaylee Verduzco OT Unavailable [phone] Nelda Chun MANUFACTURING EXECUTIVE Unavailable + [phone] Luis A Bell DO Primary Care Provider + Lily Kirkland RN Unavailable [phone] Viv Starks MD Primary Care Provider [phone] Armin Jessica MA Unavailable [phone] Power Gaston MD Unavailable [phone] Ximena Schultz NP Primary Care Provider + [phone] Encounter Details Date Type Department Care Team (Latest Contact Info) Description 11/10/2017 Orders Only [facility] CLINCON[facility] ProviderNaila MD [address] [place] [address] Social History Tobacco Use Types Packs/Day Years Used Date Smoking Tobacco: Never Comments Unknown Sex and Gender Information Value Date Recorded Sex Assigned at Not on file Legal Sex Female 4:54 AM PARACHUTIST/COMBATANT DIVER QUALIFIED Gender Identity Not on file Sexual Orientation Not on file documented as of this encounter Functional Status documented as of this encounter Plan of Treatment Not on file documented as of this encounter Procedures Procedure Name Priority Date/Time Associated Diagnosis Comments SCAN - PATHOLOGY 11/10/2017 12:0 0 AM CDT documented in this encounter Results * SCAN - PATHOLOGY (11/10/2017 12:00 AM CDT) Narrative 11/10/2017 12:00 AM CDT Ordered by an unspecified provider. Historical Provider Final Res ult documented in this encounter Visit Diagnoses Not on filedocumented in this encounter Additional Health Concerns Infection Onset Date Last Indicated Resolved Time COVID: Suspected 12/03/2020 12/03/2020 12/03/2020 1:31 PM CDT COVID: Suspected 12/14/2020 12/14/2020 12/14/2020 11:37 AM CDT COVID: Suspected 01/26/2023 01/26/2023 01/26/2023 8:12 PM PARACHUTIST/COMBATANT DIVER QUALIFIED COVID: Suspected 03/08/2024 03/08/2024 03/08/2024 5:09 PM PARACHUTIST/COMBATANT DIVER QUALIFIED COVID19 03/08/2024 03/08/2024 03/18/2024 3:05 AM PARACHUTIST/COMBATANT DIVER QUALIFIED COVID: Recovered Comment:Added based on recent COVID infection. 03/18/2024 03/19/2024 06/16/2024 3:06 AM C DT documented as of this encounter Care Teams Engraver Pantograph Relationship Specialty Start Date End Date No, Physician PCP - General 01/03/18 05/29/18 Rosalie Jones MD PCP - General 05/30/18 12/14/18 Rosalie Jones MD PCP - General Family Medicine 12/22/18 11/25/20 Luis A Bell DO [address] [facility] [address] [facility] [address] [place] [address] PCP - General Family Medicine 12/19/22 04/07/23 Viv Starks MD [address] [facility] [address] [place] [address] PCP - General Internal Medicine 04/08/23 01/15/25 Ximena Schultz, INA [address] [facility] [address] [place], [place] [id number] PCP - General Internal Medicine 01/16/25 Elliott Trivedi MD [address] [facility] [address] [place] [address] Consulting Physician Rheumatology 11/26/20 Samia Barajas MD [address] [facility] [address] [place] [address] Referring Physician Neurology 11/26/20 Jarad Cardoza MD [address] [facility] [address] [place] [address] Referring Physician Internal Medicine 11/26/20 Macy Bailon DPT [address] [facility] [address] [facility] [address] [place] [address] Physical Therapist Physical Therapy 12/11/21 01/24/22 Kaylee Verduzco OT [address] [facility] [address] [place] [address] Occupational Therapist Occupational Therapy 12/15/21 1 03/26/21 Nelda Chun, LÓPEZ [address] [facility] [address] [place] [address] Speech Language Pathologist Speech Therapy 08/10/22 09/05/22 Lily Kirkland, RN [address] [place] [address] [address] [place] [address] Administration Vice President 02/17/23 03/08/23 Armin Jessica MA [address] [facility] [address] [place] [address] ACO Care Relay Assembler 04/22/23 04/22/23 Power Gaston MD [address] [place] [address] Referring Physician Psychiatry 03/02/24 Sherrie Chase [address] [address] Machinery Mover Infectious Diseases 03/08/22 documented as of this encounter
--- OUTSIDE RECORDS SUMMARY | 2025-02-13 11:49 | XMS_ITS | Encounter Summary ---
Author Organization [facility] Address [address] [place] [address] Care Team Providers Care Heating And Ventilating Drafter Name Role Phone Rosalie Jones DO Primary Care Provider [phone] Rosalie Jones DO Unavailable [phone] Maria L Rutledge RN Unavailable [phone] Megan Nance MD Primary Care Provider [phone] Encounter Details Date Type Department Care Team (Late st Contact Info) Description 12/06/2019 Birchboxt Message Enc [facility] Medical [facility] Family Medicine - [place] [address] [facility] [address] [place] [address] Rosalie Jones DO [address] [facility] [address] [place] [address] RE: Referral Request Social History Tobacco Use Types Packs/Day Years [...] Master's degree (e.g., MA, MS, Abbie, MEd, PROCESSING SUPERVISOR, GAIL) 05/25/2018 Comments No Sex and [...] have Coronavirus / COVID-19? Unable to assess 12/03/2019 10:18 AM CDT documented as of this encounter Plan of Treatment Not on file documented as of this encounter Visit Diagnoses Not on filedocumented in this encounter Additional Health Concerns Infection Onset Date Last Indicated Resolved Time COVID-19 Rule Out 01/21/2020 01/21/2020 01/22/2020 12:05 PM PHONE BANKER COVID-19 Confirmed Comment:Resolved as 10 days symptom free for surgery 01/21/2020 01/21/2020 02/20/2020 12:02 PM PHONE BANKER documented as of this encounter Care Teams Heating And Ventilating Drafter Relationship Specialty Start Date End Date Rosalie Jones DO [address] [facility] [address] [place] [address] PCP - General FAMILY PRACTICE 03/31/18 11/18/20 Megan Nance MD [address] [facility] [address] [place] [address] PCP - General INTERNAL MEDICINE 11/19/20 Rosalie Jones DO [address] [facility] [address] [place] [address] FAMILY PRACTICE 03/31/18 11/18/20 Maria L Rutledge, RN [address] [place] [place] [address] Drawer Liner (Ambulatory) REGISTERED NURSE 11/15/19 11/18/20 documented as of this encounter
--- OUTSIDE RECORDS SUMMARY | 2025-02-13 11:49 | XMS_ITS | Clinical Summary ---
Author Organization [facility] [address] [facility] Address [address] [place] [address] Care Team Providers Care Top Lift Scourer Name Role Phone Elliott Trivedi MD Unavailable [phone] Samia Barajas MD Unavailable Jarad Cardoza MD Unavailable [phone] Power Gaston MD Unavailable [phone] Ximena Schultz NP Primary Care Provider [phone] Allergies Active Allergy Reactions Criticality Noted Date Comments Baclofen Other (See comments) Medium 03/19/2024 [place] like she was on fire in so much pain from head to toe Sulfamethoxazole-Trimetho prim Stomach upset Low 03/28/2017 Buspirone Anxiety Low 05/26/2023 Cefdinir Rash Medium 10/22/2019 Iodinated Contrast Media Nausea & Vomiting Low 04/21 BALANCE ISSUES Gemfibrozil Nausea only Low 11/10/2015 Guanfacine Other (See comments) Low 03/02/2018 sleepiness, weight gain, and nose bleeds Modafinil Entantiomers Agitation,Nausea only,Shortness of breath High 11/25/2022 Niacin Stomach upset Low 08/16/2018 Nickel Swelling Medium [place] 1-Voc-Nxs-Fish Oil Nausea only Low 10/11/2022 Povidone-Iodine Nausea only Low 12/30/2020 Silicone Hives,Rash Medium 05/15/2019 Sulfa (Sulfonamide Antibiotics) Hives Medium Family History of Allergy, Mother and Sister got hives with this med. Sulfamethizole Other (See comments) 08/24/2024 Tissue Adhesive Itching,Rash Medium 06/23/2023 Medications cetirizine 10 mg capsuleIndication s:Allergic Rhinitis Take 1 tablet by mouth every morning Active acetaminophen (TYLENOL) 500 mg tablet Take 2 tablets (1,000 mg total) by mouth every 6 (six) hours Patient taking 2 in the AM and 2 in the PM Active EPINEPHrine 0.3 mg/0.3 mL auto-injection syringeIndication s:Anaphylaxis Inject 0.3 mL (0.3 mg total) into the muscle as instructed once for 1 dose 0.3 mL Active alendronate (FOSAMAX) 70 mg tablet Take 1 tablet (70 mg total) by mouth every 7 days Take in the morning with a full glass of water, on an empty stomach, and do not take anything else by mouth or lie down for 1 hour. 12 tablet 3 025 2025 Active spironolactone (ALDACTONE) 25 mg tablet Take 1 tablet (25 mg total) by mouth daily 90 tablet 3 025 2025 Active minoxidiL (LONITEN) 2.5 mg tabletIndications :hypertension Take 1 tablet (2.5 mg total) by mouth daily 30 tablet 11 025 2025 Active gentamicin (GARAMYCIN) 0.1 % ointmentIndicatio ns:Erosio interdigitalis blastomycetica Apply topically 3 (three) times a day Mix with ketoconazole and apply between toes 15 g 1 Active levothyroxine (SYNTHROID) 50 mcg tablet Take 1 tablet by mouth once daily 90 tablet Active cholecalciferol (VITAMIN D-3) 2000 unit capsule Take 1 capsule (2,000 Units total) by mouth daily Active solriamfetoL (Sunosi) 150 mg tabletIndications :long COVID, extreme fatigue Take 1 tablet (150 mg total) by mouth every morning 30 tablet 1 025 2025 Active traZODone (DESYREL) 50 mg tabletIndications :insomnia associated with depression Take 1 tablet (50 mg total) by mouth nightly 30 tablet 2 025 2025 Active ketoconazole (NIZORAL) 2 % cream APPLY CREAM TOPICALLY TWICE DAILY 15 g Active solriamfetoL (Sunosi) 150 mg tabletIndications :long COVID, extreme fatigue Take 1 tablet (150 mg total) by mouth every morning 023 2024 Discontinued(R eorder) traZODone (DESYREL) 50 mg tabletIndications :insomnia associated with depression Take 1 tablet (50 mg total) by mouth nightly 023 2024 Discontinued(R eorder) ketoconazole (NIZORAL) 2 % cream APPLY CREAM TOPICALLY TWICE DAILY 024 2024 Discontinued famotidine (PEPCID) 20 mg tablet Take 1 tablet by mouth twice daily; Duration: 30 025 2024 Discontinued(P atient Reported) pregabalin (LYRICA) 25 mg capsule Take 1 capsule (25 mg total) by mouth 2 (two) times a day 60 capsule 5 025 2024 Discontinued(P atient Reported) Active Problems Problem Noted Date Diagnosed Date 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 She also complains of numbness in the whole arm couple of nights ago. It is possible that she has carpal tunnel. Currently she is asymptomatic. Will obtain EMG-ENG study and make recommendations after that. Common cold 03/19/2024 Assessment & Plan (03/19/2024 11:04 AM COMPUTER TEACHER): Patient went to urgent care for left ear infection. She was told that she has otitis media and was given Augmentin for 10 days. Patient said that she continues to have pain in the left ear and now she has pain in the right ear. Exam is completely normal. Patient was assured that she does not have ear infection. Patient with chronic history of sinus disease and she is followed by ENT specialist. I told her to follow up with her ENT doctor Acute non intractable tension-type headache 02/20 Assessment & Plan (03/19/2024 11:03 AM COMPUTER TEACHER): Patient complains of acute headache for the last 5 weeks. She went to the emergency room. CT scan of the head showed microvascular changes. Patient described the head is as squeezing and bilateral and mild. Will obtain MRI of the brain for further evaluation. Balance problem 03/06/2024 Assessment & Plan (03/06/2024 2:09 PM COMPUTER TEACHER): Patient is followed by Neurology and the movement disorder clinic. I have advised her to follow up with them. She has a follow up in April. She has had normal imaging and normal labs. History of parathyroidectomy 03/02/2024 Assessment & Plan (03/02/2024 10:49 AM COMPUTER TEACHER): Will update PTH, BMP & D levels. DEXA ordered; will have completed at [facility] in [place]. Aware that she is to call to schedule. Verified that she uses [facility]. Aware to check results/results letter in [facility]. Will contact by phone if needed. Neuropathic pain 10/19/2023 Assessment & Plan (10/19/2023 2:25 PM CDT): She has a chief complaint of impaired balance for the past 3 years in the setting of long-COVID, with several other associated symptoms including fatigue, dyspnea on exertion, and migratory pains. She reports an intermittent BUE action/postural tremor that started in summer 2022 after a course of TMS for refractory depression. On exam she has a very slight BUE action/postural tremor (at last visit, not assessed today) and diffusely brisk reflexes, but otherwise essential normal neurologic exam. There was trace RUE/RLE rigidity (possibly just paratonia) and slightly slow RUE finger taps, but overall no convincing parkinsonism. Her exam is reassuring and I do not think she has Parkinson disease, but more likely all of her symptoms are attributable to long COVID and hopefully will continue to gradually improve. Today she returns for new pains and numbness in the arms and feet, which started suddenly 1-2 months ago. They sound neuropathic based on her description, though exam does not show any clear signs of neuropathy -- slightly diminished vibratory sensation but other modalities intact, and no diminished reflexes. We discussed that she could have some degree of neuropathy without obvious exam findings, which has numerous causes that could be further evaluated but likely would not change management lead. We will check B12 and thiamine but defer further testing for now. I offered referral to the Neuromuscle clinic as the experts in neuropathy, and we discussed that they may consider additional blood tests, EMG/NCS, and/or skin biopsy. She is interested in this and I will send the referral. The pain has nearly resolved for now since starting gabapentin 300mg nightly. Recommendations: -check B12 & B1 -continue gabapentin 300mg nightly -referral to Neuromuscle for further evaluation Easy bruising 09/26/2023 Assessment & Plan (09/26/2023 4:53 PM CDT): Patient said that in the last few months she noticed easy bruising. She denied any bleeding from any orifice. I could not see any bruising. Will obtain CBC and PT and PTT for further evaluation Cervical stenosis of spine 09/26/2023 Assessment & Plan (09/26/2023 4:57 PM CDT): Patient is managed by the pain specialist Vitamin D deficiency 09/08/2023 Assessment & Plan (12/17/2024 9:24 AM CDT): Advised to take vitamin-D 2000 units daily Assessment & Plan (08/24/2024 10:12 AM CDT): Chronic problem. Was to increase D3 to 2000IU daily (02/2024 by PCP). Will update D level. Verified that she uses my[facility]. Aware to check results/results letter in [facility]. Will contact by phone if needed. Assessment & Plan (03/19/2024 11:05 AM COMPUTER TEACHER): Advised to take vitamin-D 2000 units daily and will obtain vitamin-D level Assessment & Plan (03/02/2024 10:47 AM COMPUTER TEACHER): Chronic problem. Not currently taking the D3 1000IU suggested. Will update D level. Verified that she uses [facility]. Aware to check results/results letter in [facility]. Will contact by phone if needed. Assessment & Plan (09/08/2023 3:54 PM CDT): Chronic, uncontrolled Update 25 [place] vit D levels Hyperparathyroidism 05/23/2023 Assessment & Plan (12/17/2024 7:16 AM CDT): Patient has parathyroid adenoma status post parathyroidectomy. She is followed by the service delivery director. Patient thinks that her fatigue improved since she had the surgery. Assessment & Plan (08/24/2024 10:11 AM CDT): H/o complete parathyroid ectomy 06/20/23. Had PTH 05/22/24 (Dr Stewart) that was normal at 27. Calcim levels normal also. Assessment & Plan (06/15/2024 7:29 AM CDT): Patient has parathyroid adenoma status post parathyroidectomy. She is followed by the service delivery director. Patient thinks that her fatigue improved since she had the surgery. Assessment & Plan (09/26/2023 4:56 PM CDT): Patient has parathyroid adenoma status post parathyroidectomy. She is followed by the service delivery director. Patient thinks that her fatigue improved since she had the surgery. Gait instability 05/03/2023 Assessment & Plan (11/13/2024 1:04 PM CDT): presented for a follow up. She denied falls since her last visit here with Dr. Hammer in April. She felt her balance was not as good the past week. She had PT a few years with no benefit when she was diagnosed with Covid. She tried PT again several months ago with no benefit. She used a cane to ambulate. She did not do routine exercises or stretching routinely. She did sign up for an exercise class that will start soon. Her appetite fluctuates. She stayed hydrated with water. Her sleep better. She was on trazodone. She is currently in a study for sleep. She does have depression and followed up with her psychiatrist. She has done ECT, TMS and other medications, but she indicated that there is nothing her current psychiatrist was not sure what to do for her. Recommendations Continue to follow up with therapist and psychiatrist Please make psychiatrist aware of hallucinations Follow up as planned with Dr. Hammer Fall precaution OT with Renee Abrams OT for FND Exercise encouraged as tolerated Assessment & Plan (05/17/2024 8:53 AM COMPUTER TEACHER): She has a chief complaint of impaired balance for the past 4 years in the setting of long-COVID, with several other associated symptoms including fatigue, dyspnea on exertion, and migratory pains. Since then she has developed numerous other waxing / waning symptoms including headaches, visual auras, She reports an intermittent BUE action/postural tremor that started in summer 2022 after a course of TMS for refractory depression. Her exam is essentially normal other than diffusely brisk reflexes. MRI brain and C-spine were also unremarkable (normal age-related changes; moderate-severe L neuroforaminal stenosis at C5-6, but her symptoms and exam are not suggestive of radiculopathy and this is stable since 2018 based on outside report). 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 We discussed our current understanding of FND as a problem with patterns of activity in the brain, but the brain and nerve tissue itself is still healthy, thus things like MRI, EEG/EMG, and blood tests are usually normal. We also discussed the risk of unnecessary and excessive testing and intervention in the setting of FND. I recommended against C-spine surgery as I do not think this explains her symptoms. If there is ongoing concern we could consider EMG/NCS to assess for cervical radiculopathy that is not evident on exam. We discussed that behavioral techniques like Cognitive Behavioral Therapy are the most effective treatments for FND rather than medications, but treating underlying depression or anxiety is also important for best results. I recommended she see Physical Therapy here for gait and balance training with a focus on techniques that can be helpful for FND. Recommendations: -PT for gait / balance training -She is interested in our brain donation program. Our research coordinators will contact her with more information. Assessment & Plan (05/03/2023 6:09 PM COMPUTER TEACHER): She has a chief complaint of impaired balance for the past 3 years in the setting of long-COVID, with several other associated symptoms including fatigue, dyspnea on exertion, and migratory pains. She reports an intermittent BUE action/postural tremor that started in summer 2022 after a course of TMS for refractory depression. On exam she has a very slight BUE action/postural tremor and diffusely brisk reflexes, but otherwise essential normal neurologic exam. There was trace RUE/RLE rigidity (possibly just paratonia) and slightly slow RUE finger taps, but overall no convincing parkinsonism. We discussed that her exam is reassuring and I do not think she has Parkinson disease, but more likely all of her symptoms are attributable to long COVID and hopefully will continue to gradually improve. I will plan to see her again in 1 year for a repeat exam to monitor for new or progressive signs of parkinsonism, but otherwise no further workup or treatment is necessary at this time. Recommendations: -no further workup or treatment at this time -she is interested in brain donation and our research coordinators will contact her with more information (currently registered with [facility] but would like to switch to our program) Occasional tremors 04/08/2023 Assessment & Plan (04/08/2023 9:35 AM COMPUTER TEACHER): Patient with tremors and stiff gait. Exam is normal. I could not appreciate any tremors. Neurological exam was normal. Will make a referral to see a neurologist for further evaluation. 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 Assessment & Plan (09/26/2023 12:45 PM CDT): Managed by the psychiatrist Assessment & Plan (04/08/2023 9:34 AM COMPUTER TEACHER): Managed by the psychiatrist COVID-19 scott clark chronic decreased mobility and endurance 03/09/2022 Assessment & Plan (01/04/2023 7:58 AM CDT): Follows with [facility] Check a new chest x-ray. Check a cbc Myalgia 03/09/2022 Assessment & Plan (12/17/2024 9:23 AM CDT): The patient has chronic pain. She tried baclofen and gabapentin and that did not help. She agrees to try Lyrica. Will start her on 25 mg b.i.d.. Side effects explained to the patient. Will make a referral to see pain management. Assessment & Plan (03/06/2024 2:08 PM COMPUTER TEACHER): We will try baclofen 10 mg b.i.d.. Patient has follow up already scheduled with Dr. Starks in one month. Scott COOPER 03/08/2022 Assessment & Plan (06/15/2024 7:34 AM CDT): Patient with post COVID fatigue and neuropathy. She had physical therapy. She is followed by neurologist. Low serum cortisol level 12/10/2020 Overview (12/10/2020): on steroids. may need later acth stim test. saliva results pending Assessment & Plan (08/23/2021 5:59 PM CDT): Seeing endocrinology. May need test. For now from steroids Chronic low back pain 12/06/2020 Assessment & Plan (04/19/2023 2:52 PM COMPUTER TEACHER): Patient with chronic back pain secondary to bulging disc. She was under the care of Dr. Mcclain and she had multiple epidural injections. She said that she did not have good relief. Her last MRI was in August 2020. Patient sees a chiropractor. She has persistent pain. Will put her on baclofen 10 mg 2-3 times daily p.r.n.. Will make a referral to see a different pain specialist. Patient may need to see a neurosurgeon as well. 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 12 tabs in 18 days. No further sob on muscle relaxer. Helps sleep better on hips. Alexi horses. [place] (obstructive sleep apnea) 02/20/2020 Assessment & Plan (12/17/2024 7:17 AM CDT): Patient stated that she does not have sleep apnea anymore and she does not use CPAP machine Assessment & Plan (06/15/2024 7:29 AM CDT): Patient stated that she does not have sleep apnea anymore and she does not use CPAP machine Assessment & Plan (09/26/2023 4:53 PM CDT): Patient stated that she does not have sleep apnea anymore and she does not use CPAP machine Assessment & Plan (04/08/2023 9:35 AM COMPUTER TEACHER): Patient uses CPAP machine Assessment & Plan (02/22/2022 9:46 AM COMPUTER TEACHER): Allergic to silicon. Sleeps on side. Cant tolerate cpap. Recommend trial of albuterol to maximinze oxygenation twice a day and before exertion for 1-2 weeks. Heart palpitations 12/08/2018 Overview (01/27/2021): had about a month ago Bilateral carpal tunnel syndrome 04/20/2018 Neuropathy 04/20/2018 Assessment & Plan (06/15/2024 7:34 AM CDT): Patient could not tolerate gabapentin or Lyrica. She had physical therapy. She is followed by neurologist. Assessment & Plan (03/06/2024 2:08 PM COMPUTER TEACHER): Patient has not tolerated gabapentin in the past. We will do Lyrica 25 mg b.i.d.. Patient already has follow up scheduled in one month. Postmenopausal bleeding 10/19/2017 Chronic fatigue and malaise 09/16/2017 Assessment & Plan (09/26/2023 4:54 PM CDT): Patient with history of chronic fatigue specially after COVID infection. She had extensive workup in the past that was essentially negative. Assessment & Plan (04/08/2023 9:33 AM COMPUTER TEACHER): Patient with chronic fatigue syndrome after COVID infection. She is currently stable. Assessment & Plan (01/04/2023 7:49 AM CDT): S/p covid Daytime somnolence 06/29/2017 Insomnia 06/29/2017 Paresthesia and pain of both upper extremities 0 06/29/2017 Thoracic outlet syndrome 06/08/2017 Chronic pain of both wrists 11/26/2015 Pes equinus, acquired 01/14/2015 Senile osteoporosis 12/24/2014 Overview (01/27/2021): Transitioned From: Osteopenia Assessment & Plan (12/17/2024 7:18 AM CDT): Patient is maintained on alendronate. No falls. Assessment & Plan (06/15/2024 7:30 AM CDT): Patient is maintained on alendronate. No falls. Osteoarthritis of left knee 12/12/2014 Generalized anxiety disorder 11/07/2014 IBS (irritable bowel syndrome) 11/07/2014 Odontoid fracture 04/12/2013 gerd w/ sliding &paraesophageal hernia Assessment & Plan (09/26/2023 4:53 PM CDT): Maintained on Prilosec. She likes to see a different GI doctor because her GI doctor left his practice. Will make a referral Assessment & Plan (07/22/2022 2:45 PM CDT): Doing relatively well saw GI. Had a mild Schatzki's ring which was dilated and a small hiatal hernia. Doing well and. Controlled continue omeprazole Assessment & Plan (12/10/2020 5:09 PM CDT): Refer to GI Acquired hypothyroidism Assessment & Plan (12/17/2024 7:15 AM CDT): Patient is maintained on levothyroxine and followed by the service delivery director Assessment & Plan (08/24/2024 10:12 AM CDT): Chronic problem. Biochemically euthyroid on current levothyroxine 50mcg daily. Aware to take 1st thing in morning, 30-60 minutes before food/drink/other medications. Will update labs. Verified that she uses mychart. Aware to check results/results letter in [facility]. Will contact by phone if needed. Assessment & Plan (06/15/2024 7:28 AM CDT): Patient is maintained on levothyroxine and followed by the service delivery director Assessment & Plan (03/19/2024 11:03 AM COMPUTER TEACHER): Patient is maintained on levothyroxine and followed by the service delivery director Assessment & Plan (03/02/2024 10:47 AM COMPUTER TEACHER): Chronic problem. Biochemically euthyroid on current levothyroxine 50mcg daily. Aware to take 1st thing in morning, 30-60 minutes before food/drink/other medications. Will update labs today. Verified that she uses [facility]. Aware to check results/results letter in [facility]. Will contact by phone if needed. Assessment & Plan (09/26/2023 4:52 PM CDT): Patient is maintained on levothyroxine and followed by the service delivery director Assessment & Plan (09/08/2023 3:46 PM CDT): Chronic, stable Continue Levothyroxine 50 mcg daily Assessment & Plan (04/08/2023 9:32 AM COMPUTER TEACHER): Managed by the service delivery director Assessment & Plan (03/07/2023 1:05 PM COMPUTER TEACHER): Recommended to stop liothyronine since this has not made any difference in her symptoms Continue with levothyroxine current dose of 50 mcg daily Will recheck TSH in 2 months Assessment & Plan (08/23/2021 5:59 PM CDT): Seeing endocrinolpgy. Continue t3 and t4 levothyroxine (SYNTHROID) 50 mcg tablet liothyronine (CYTOMEL) 5 mcg tablet Resolved Problems Problem Noted Date Diagnosed Date Resolved Date BMI 28.0-28.9,adult 03/06/2024 08/25/19 25 COVID-19 scott paige manifqueta ting chronic fatigue 09/17/2022 01/04/2023 Depression 09/17/2022 01/04/[address] of the chest 12/31/2020 Chest pressure 12/12/2020 01/04/2023 Overview (12/12/2020): Added automatically from request for surgery [id number] High serum parathyroid hormone (PTH) 12/06/2020 09/08/2023 Overview (12/06/2020): 11/04/20 was 72 while Assessment & Plan (03/07/2023 1:06 PM COMPUTER TEACHER): Stop cinacalcet, since again this has not made any difference on her fatigue and body ache symptoms Recheck serum calcium , 25 hydroxy vitamin-D and PTH levels in 2 months low GFR (55-75) 12/06/2020 01/04/2023 Depression s/p ECT 12/06/2020 Overview (12/06/2020): f/u with psych.. continue meds Abnormal CXR 12/06/2020 01/04/2023 Overview (12/06/2020): LUNGS/PLEURA: Diffuse mild interstitial prominence. mild atelectasis at the left lung base laterally. Atherosclerotic calcifications of the aortic arch. Double density appearance in the lower mediastinum may reflect a moderate-sized hiatal hernia. SOB (shortness of breath) 12/05/2020 Assessment & Plan (02/22/2022 9:42 AM COMPUTER TEACHER): Still exertional. Try albuterol prior to exertion. Cough 12/05/2020 02/22/2022 Assessment & Plan (12/10/2020 5:08 PM CDT): Still ongoing nonproductive cough for a couple months Hypercalcemia 12/05/2020 09/08/2023 Overview (12/05/2020): 11/09/19 NA 128,CA 9.8 Fatigue 12/05/2020 01/04/2023 Headache 06/16/2020 01/04/2023 Sinusitis 06/16/2020 01/04/2023 Strain of tendon of lower back 12/23/2017 01/04/2023 Excessive sweating 09/16/2017 3 Nausea 09/16/2017 01/04/2023 Vertigo 09/16/2017 01/04/2023 Assessment & Plan (06/05/2022 3:35 PM CDT): Seeing ENT. Knows how to do epleys. For bppv BMI 29.0-29.9,adult 07/18/2017 01/05/20 23 Cyst, ovarian 06/08/2017 01/04/2023 De Quervain's tenosynovitis 02/18/2015 07/16/2021 Overview (01/27/2021): Transitioned From: Tendonitis Disorder of rotator cuff 05/22/2013 Closed fracture of proximal end of humerus 05/21/2013 01/04/2023 Fracture of neck of humerus 03/05/2013 01/04/2023 Encounters Date Type Department Care Team Description 02/06/2025 11:00 AM COMPUTER TEACHER Therapy [facility] Medicine Occupational Therapy [address] [place] [phone] Renee Abrams OT Functional neurological symptom disorder (conversion disorder), with abnormal movement (Primary Dx) 01/24/2025 2:30 PM COMPUTER TEACHER Office Visit [facility] Psychiatry [address] [place] [address] [address] [place] [phone] Beverley Guzman MD Schizotypal personality disorder (HCC) (Primary Dx); Severe episode of recurrent major depressive disorder, without psychotic features (HCC) 01/23/2025 1:30 PM COMPUTER TEACHER Therapy [facility] Medicine Occupational Therapy [address] [place] [phone] Renee Abrams OT Functional neurological symptom disorder (conversion disorder), with abnormal movement (Primary Dx) 01/16/2025 1:30 PM CDT Therapy [facility] Medicine Occupational Therapy [address] [place] [phone] Renee Abrams OT Functional neurological symptom disorder (conversion disorder), with abnormal movement (Primary Dx) 01/14/2025 Telephone [facility] Medicine Psychiatry [address] [place] [address] Madina Soto 01/09/2025 1:30 PM CDT Therapy [facility] Occupational Therapy [address] [place] [phone] Renee Abrams OT Functional neurological symptom disorder (conversion disorder), with abnormal movement (Primary Dx) 01/09/2025 8:[address] [facility] Lab [address] [place] [id number] Hyperparathyroidism; Encounter for lipid screening for cardiovascular disease 01/09/2025 Results Follow-Up [facility] Medical [facility] Internal Medicine [address] [place] [phone] Viv Starks MD Lipid panel, TSH, T4, free, Additional followed-up results: 4 01/06/2025 Plan of Care Documentation [facility] Occupational Therapy [address] [place] [phone] 01/01/2025 10:00 AM CDT Therapy [facility] Occupational Therapy [address] [place] [phone] Renee Abrams OT Functional neurological symptom disorder (conversion disorder), with abnormal movement (Primary Dx) 12/17/2024 9:00 AM CDT Office Visit [facility] Medical [facility] Internal Medicine [address] [place] [phone] Viv Starks MD Acquired hypothyroidism (Primary Dx); Hyperparathyroidism; [place] (obstructive sleep apnea); Senile osteoporosis; Moderate episode of recurrent major depressive disorder (HCC); BMI 30.0-30.9,adult; Breast cancer screening by mammogram; Encounter for lipid screening for cardiovascular disease; Myalgia; Encounter for immunization; Vitamin D deficiency; Functional neurological symptom disorder (conversion disorder), with abnormal movement 11/13/2024 2:00 PM CDT Clinical Support [facility] Medicine Movement Disorders [facility] [address] [place] [phone] Gait instability 11/13/2024 12:00 PM CDT Office Visit [facility] Medicine Movement Disorders [address] [phone] Jim Long NP Functional neurological symptom disorder (conversion disorder), with abnormal movement (Primary Dx); Gait instability; Chronic fatigue and malaise from Last 3 Months Immunizations Immunization Administration Dates Next Due Influenza Nasal, Unspecified 01/19/2018 Influenza, Quadrivalent, Tameka l Culture-based MDCK, Antibiotic Free, Intramuscular 12/20/2019 Influenza, Quadrivalent, Hig h Dose, Preservative Free, Intrr 01/04/2023,01/01/2022,01/19/2018 Influenza, Quadrivalent, Spl it, Preservative Free, Intramuscular 02/16/2021,12/08/2018,12/21/2017,03/04,03/03/2015 Influenza, Trivalent, Preser vative Free, Intramuscular 03/19/2024,01/31/2012 Influenza, Unspecified 03/19/2024(Deferr ed: Patient Refused),03/06/2024(Deferred: Patient decision),01/31/2023(Deferred: Patient Refused),01/01/2022,12/25/2019 Pneumococcal Conjugate Pcv20 12/17/2024 Pneumococcal Polysaccharide PPV23 01/31/2012 ZOSTER Recombinant 10/28/2017,10/27/2017 Surgical History Surgery Date Site/Laterality Comments HYSTEROSCOPY 11/10/2017 Fx D&C for PMB. path benign. CHOLECYSTECTOMY 03/21/2012 - 03/20/2013 DILATION AND CURETTAGE OF UTERUS 08/01/2018 no endocervical tissue. Unable to access uterine cavity with Hysteroscope ROBOTIC ASSISTED HYSTERECTOMY 05/15/2019 RALH, BSO, USVS for pmb/thickened endometrium TONSILLECTOMY 03/21/1961 - 03/20/1962 US ABDOMEN COMPLETE W LIVER DOPPLER (C) 05/31/2018 Right KNEE ARTHROSCOPY W/ LATERAL RELEASE 03/21/1987 - 03/20/1988 Left CATARACT EXTRACTION 03/21/2020 - 03/20/2021 Bilateral SINUS SURGERY 02/19/2020 - 03/20/2020 BLEPHAROPTOSIS REPAIR 03/21/2019 - 03/20/2020 Left ORIF DISTAL RADIUS FRACTURE 01/19/2019 - 02/17/2019 Left WRIST PLATE and carpal tunnel ESOPHAGOGASTRODUODENOSCOPY 06/30/2022 x2, dilation CARDIAC CATHETERIZATION 12/19/2020 - 01/18/2021 Left PARATHYROIDECTOMY FRACTURE SURGERY 2019 HYSTERECTOMY 2020 CARPAL TUNNEL RELEASE 2017 HAND SURGERY Right thumb Mar 2024 KNEE ARTHROSCOPY 1998 lateral release left knee THUMB SURGERY Right Medical History Medical History Date Comments Thyroid dysfunction Acid reflux Anxiety Insomnia Vertigo Arthritis 1997 Cataract 2020 removed Brain concussion 2012 Depression 1973 Autoimmune disease 2020 Menstrual problem hysterectomy in 2019 Sleep apnea 2017 Repeat study aft er sinus surgery showed no sleep apnea. PONV (postoperative nausea a nd vomiting) Delayed emergence from gener al anesthesia SLOW TO WAKE UP Chronic kidney disease NOT OPTI MAL Chronic pain disorder Hypothyroidism Fatigue Autoimmune disorder ANKYLOSING S PONDYLITIS Ankylosing spondylitis SOB (shortness of breath) ALL T HE TIME Covid-19 01/2020 MILD NO HOSPITAL IZATION THINKS SHE HAD IT AGAIN IN 06/2020 AFTER VACCINE NO TESTING Vitamin D deficiency Depression s/p ECT 12/06/2020 f/u with psyc h.. continue meds Dysphagia Diverticulosis Myalgic encephalomyelitis/chronic fatigue syndrome (ME/CFS) 1992 Motion sickness Diverticulitis of colon Irritable bowel syndrome Migraines Long COVID High serum parathyroid hormo ne (PTH) 12/06/2020 11/04/20 was 73 while Syncope FEB 2024 Vitamin B12 deficiency Low for years CTS (carpal tunnel syndrome) surgery left wrist Concussion 2012 Hypertension Feb 2024 HL (hearing loss) slight 4 years Reflux 20 years Peripheral neuropathy 2023 Memory loss 30 years Tremors of nervous system oct 2022 Fibromyalgia, primary 30 years Family History Medical History Relation Name Comments No Known Problems Brother Alcohol abuse Father Aleksey Sibrel Alzheimer's disease Father Aleksey Sibrel Anxiety disorder Father Aleksey Sibrel COPD Father Aleksey Sibrel Cancer Father Aleksey Sibrel Chronic Pain Father Aleksey Sibrel Colon cancer Father Aleksey Sibrel Depression Father Aleksey Sibrel Early Father Aleksey Sibrel Hearing loss Father Aleksey Sibrel Heart attack Father Aleksey Sibrel Heart disease Father Aleksey Sibrel Hypertension Father Aleksey Sibrel Learning disabilities Father Aleksey Sibrel Lung cancer Father Aleksey Sibrel Memory loss Father Aleksey Sibrel Mental illness Father Aleksey Sibrel Snoring Father Aleksey Sibrel Stroke Father Aleksey Sibrel Parkinsonism Father's Brother Mother's brother Alzheimer's disease Father's Sister Kelsea Olivier and Iqra Cancinojesica Diabetes Maternal Grandfather Alzheimer's disease Maternal Grandmother [place] Colon cancer Maternal Grandmother Mary Ellen Diabetes Maternal Grandmother Mary Ellen Lung cancer Maternal Grandmother [place] Allergy (severe) Mother Lyndsey Sibrel Anxiety disorder Mother Lyndsey Sibrel Cancer Mother Lyndsey Sibrel Dementia Mother Lyndsey Sibrel Depression Mother Lyndsey Sibrel Frontotemporal dementia Mother Lyndsey Sibrel Hearing loss Mother Lyndsey Sibrel Heart disease Mother Lyndsey Sibrel Hypertension Mother Lyndsey Sibrel Memory loss Mother Lyndsey Sibrel Mental illness Mother Lyndsey Sibrel Parkinsonism Mother Lyndsey Sibrel idiopathic PD Rashes / Skin problems Mother Lyndsey Sibrel Sleep apnea Mother Lyndsey Sibrel Stroke Mother Lyndsey Sibrel Thyroid disease Mother Lyndsey Sibrel cva Mother Lyndsey Sibrel No Known Problems Paternal Grandfather No Known Problems Paternal Grandmother Myasthenia gravis Sister 1 Allergy (severe) Sister 2 Lis Olvera Anxiety disorder Sister 2 Lis Olvera Asthma Sister 2 Lis Olvera Depression Sister 2 Lis Olvera Heart disease Sister 2 Lis Olvera Hypertension Sister 2 Lis Olvera Mental illness Sister 2 Lis Olvera Allergy (severe) Sister 3 Lis Olvera Anxiety disorder Sister 3 Lis Olvera Asthma Sister 3 Lis Olvera Depression Sister 3 Lis Olvera Heart disease Sister 3 Lis Olvera Hypertension Sister 3 Lis Olvera Mental illness Sister 3 Lis Olvera Migraines Sister 4 Diya Colling Breast cancer Neg Hx Ovarian cancer Neg Hx Relation Name Status Comments Brother Father Aleksey Sibrel Father's Brother Mother's brother Father's Sister Kelsea Olivier and Iqra Gotti Maternal Grandfather Maternal Grandmother [place] Alive Mother Lyndsey Sibrel Paternal Grandfather Paternal Grandmother Sister 1 Sister 2 Lis Olvera Sister 3 Lis Olvera Alive Sister 4 Diya Colling Alive Social History Tobacco Use Types Packs/Day Years Used Date Smoking Tobacco: Never Passive Smoke Exposure: Never Smokeless Tobacco: Never Tobacco Cessation:Counseling Given: Not Answered Alcohol Use Standard Drinks/Week Comments Yes 0 [...] on file Legal Sex Female 4:54 AM COMPUTER TEACHER Gender Identity Not on file Sexual Orientation Not on file Obstetrics History Para Term AB IAB SAB Ectopic Multiple Livin g Live Births 1 0 0 1 1 Date Outcome GA Total Labor Labor/2nd/3rd Weight Sex Type Anes PTL Na A1 A5 Name Clin IAB Comments Last Filed Vital Signs Vital Sign Reading Time Taken Comments Blood Pressure 136/86 12/17/2024 9:00 AM CDT Pulse 78 12/17/2024 9:00 AM CDT Temperature 36.6 C (97.8 F) 12/17/2024 9:00 AM CDT Respiratory Rate 18 12/17/2024 9:00 AM CDT Oxygen Saturation 99% 12/17/2024 9:00 AM CDT Inhaled Oxygen Concentration - - Weight 87.8 kg (193 lb 8 oz) 12/17/2024 9:00 AM CDT Height 170.2 cm (5' 7.01) 12/17/2024 9:00 AM CD T Body Mass Index 30.3 12/17/2024 9:00 AM CDT Plan of Treatment Health Maintenance Due Date Last Done Comments DTaP/Tdap/Td Vaccine (1 - Tdap) 09/14/1966 Covid-19 Vaccine (3 - 2024-2 6 season) 2024 06/17/2020, 05/27/2020 Influenza Vaccine (#1) 2024 , 01/04/2023, 01/01/2022, Additional history exists Breast Cancer Screening-Mammogram 03/29/2025 03/29/2024, 07/24/2022, 07/24/2022, Additional history exists Well Visit 65+ 06/15/2025 06/15/2024, 12/07/2021, 08/03/2021 Fall Risk Assessment 07/09/2025 07/09/2024, 06/15/2024, 03/19/2024, Additional history exists Depression Screening 11/13/2025 11/13/2024, 07/18/2024, 07/18/2024, Additional history exists Osteoporosis Screening-Bone Density Scan 04/24/2026 04/24/2024, 06/26/2021, 12/30/2014 Colon Cancer Screening-Colonoscopy 11/24/2026 06/30/2022, 11/24/2016 Zoster Vaccine Completed 10/28/2017, 10/27/2017 Hepatitis B Screening Completed 11/10/2019 Hepatitis C Screening Completed 11/10/2019 Colon Cancer Screening-CT Colonography Discontinued 06/30/2022, 11/24/2016 Colon Cancer Screening-DNA Stool Discontinued 07/01/19 23, 11/24/2016 Colon Cancer Screening-FIT Discontinued 06/30/2022, Colon Cancer Screening-Sigmoidoscopy Discontinued 06/30/2022, 11/24/2016 Pneumococcal vaccine 65+ Discontinued 12/17/2024, 01/19 Goals Goal Patient Goal Type Associated Problems Recent Progress Patient-Stated? Author Short-term Goal 1A: (New) Pt to identify 3 ways in which her medical/physical health conditions negatively impact her emotional/mental health conditions (and vice versa). Care Plan Problem 1: Problems with health conditions No Kaylee Griffin, INDUSTRIAL REHABILITATION CONSULTANT Note: Short-term Goal 1A: Pt to identify [...] Problem 2: Problems with grief and loss Kaylee Gutierres, BRADLEY Note: Short-term Goal 2A: Pt to identify and report 3 ways in which she grieves the life quality she would have had/might have had if she did not have these medical/physical health conditions. Start date 01/29/2022 Initial Expected End Date: 02/26/2022 Medical Devices Implanted Type Area Policy Change Clerks Supervisor Device Identifier Shelf Expiration Date Model / Serial / Lot Plate Plate Left: Wrist Procedures Procedure Name Priority Date/Time Associated Diagnosis Comments EGFR Routine 01/09/2025 8:42 AM CDT COMPREHENSIVE METABOLIC PANEL Routine 01/09/2025 8:42 AM CDT CBC WITHOUT DIFFERENTIAL Routine 01/09/2025 8:42 AM CDT VITAMIN D 25 HYDROXY Routine 01/09/2025 8:42 AM CDT T4, FREE Routine 01/09/2025 8:42 AM CDT TSH Routine 01/09/2025 8:42 AM CDT LIPID PANEL Routine 01/09/2025 8:42 AM CDT DEXA AXIAL SKELETON BONE DENSITY 1 OR MORE SITES Schedule Routine, Read Routine (OP Routine) 04/24/2024 9:39 AM COMPUTER TEACHER History of parathyroidectomy Primary hyperparathyroidism SCREENING MAMMOGRAM BILATERAL W AMARI Schedule Routine, Read Routine (OP Routine) 03/29/2024 3:09 PM COMPUTER TEACHER Screening mammogram, encounter for HM COLONOSCOPY Routine 06/30/2022 HEPATITIS PANEL, ACUTE Routine 11/10/2019 6:00 AM CDT from Last 3 Months or Most Recently Relevant to Health Maintenance Results * eGFR (01/09/2025 8:42 AM CDT) eGFR 72 >=60 mL/min/1. 73 m2 Comment: Interpretive Data Reference Interval Normal >/= 90 mL/min/1.73m2 Mildly decreased* 60 - 89 mL/min/1.73m2 Mildly to moderately decreased 45 - 59 mL/min/1.73m2 Moderately to severely decreased 30 - 44 mL/min/1.73m2 Severely decreased 15 - 29 mL/min/1.73m2 Kidney Failure < 15 mL/min/1.73m2 *Relative to young adult level Estimated glomerular filtration rate is determined by the 2020 CKD-EPI equation recommended by the National Kidney Foundation (A Unifying Approach to GFR Estimation: Recommendations of the NKF-ASK Task Force on Reassessing the Inclusion of Race in Diagnosing Kidney Disease, JASN 2020). The CKD-EPI equation should not be used for patients with unstable renal function and has not been validated in children and those over 70. Current interpretive data was last reviewed 2021. Testing performed by: [facility], [address] [place] [address]., [address] Blood 01/09/2025 8:42 AM CDT 01/09/2025 9:17 AM CDT Ximena Schultz NP LAB BLOOD ORDERABLES Final Result Performing Organization Address City/[facility]/ZIP Co de Phone Number [id number] [place] [address] * Vitamin D 25 hydroxy (01/09/2025 8:42 AM CDT) Vitamin D 25-OH 44.0 30.0 - 80.0 ng/mL Blood 01/09/2025 8:42 AM CDT 01/09/2025 10:32 AM CDT Ximena Schultz NP LAB BLOOD ORDERABLES Final Result [id number] [place] [address] * CBC without differential (01/09/2025 8:42 AM CDT) [facility] Signature WBC 7.96 3.80 - 9.90 K/cumm Comment:Testing performed by : [address] [address] Hgb 13.9 11.9 - 15.5 g/dL SHRUTI Comment:Testing performed by : [address] [address] Hct 41.5 35.6 - 45.5 % SHRUTI Comment:Testing performed by : [address] [address] Plt 306 150 - 400 K/cumm SHRUTI Comment:Testing performed by : [address] [address] MPV 10.3 9.1 - 12.3 fL SHRUTI Comment:Testing performed by : [address], [address] RBC 4.58 3.90 - 5.20 M/cumm SHRUTI Comment:Testing performed by : [address] [address] MCV 90.6 81.3 - 96.4 fL SHRUTI Comment:Testing performed by : [address] [address] MCH 30.3 27.1 - 33.3 pg SHRUTI Comment:Testing performed by : [address], [address] MCHC 33.5 32.3 - 35.7 g/dL SHRUTI Comment:Testing performed by : [address], [address] RDW CV 13.5 11.1 - 14.9 % SHRUTI Comment:Testing performed by : [address], [address] RDW SD 44.8 35.7 - 48.1 fL SHRUTI Comment:Testing performed by : [address], [address] NRBC abs 0.00 0.00 - 0.01 K/cumm SHRUTI Comment:Testing performed by : [address] [address] Blood 01/09/2025 8:42 AM CDT 01/09/2025 9:18 AM CDT Ximena Schultz FAMILY DAY CARE WORKER LAB BLOOD ORDERABLES Final Result SHRUTI [address] [place] [address] * TSH (01/09/2025 8:42 AM CDT) Thyroid Stimulating Hormone 4.01 0.30 - 4.20 mcIUnit/mL Comment:Testing performed by : [address] [address] Blood 01/09/2025 8:42 AM CDT 01/09/2025 9:17 AM CDT Ximena Schultz NP LAB BLOOD ORDERABLES Final Result Performing Organization Address [facility] Co de Phone Number [id number] [address] * T4, free (01/09/2025 8:42 AM CDT) Free T4 1.13 0.90 - 1.70 ng/dL Comment:Testing performed by : [address] [address] Blood 01/09/2025 8:42 AM CDT 01/09/2025 9:17 AM CDT Ximena Schultz FAMILY DAY CARE WORKER LAB BLOOD ORDERABLES Final Result SHRUTI [address] [place] [address] * Lipid panel (01/09/2025 8:42 AM CDT) Cholesterol 170 30 - 199 mg/dL Comment: Interpretive Data Ages < or = 19 years Acceptable: <170 mg/dL Borderline high: 170-199 mg/dL High: >or= 200 mg/dL Ages > or = 20 years Desirable: <200 mg/dL Borderline high: 200-239 mg/dL High: >or= 240 mg/dL Literature References: 1. Expert Panel on Integrated Guidelines for Cardiovascular Health and Risk Reduction in Children and Adolescents. Pediatrics 2011;128:S213 2. NCEP Expert Panel. Circulation 2004;110:227 Current Interpretive Data was last revised on 2017. Testing performed by: [address] [address] Triglycerides 133 <=149 mg/dL SHRUTI Comment: Interpretive Data Ages < or = 9 years Acceptable: <75 mg/dL Borderline high: 75-99 mg/dL High: >or= 100 mg/dL Ages 10 to 20 years Acceptable: <90 mg/dL Borderline high: 90-129 mg/dL High: >or= 130 mg/dL Ages > or = 20 years Desirable: <150 mg/dL Borderline high: 150-199 mg/dL High: 200-499 mg/dL Very high: >or= 499 mg/dL Literature References: 1. Expert Panel on Integrated Guidelines for Cardiovascular Health and Risk Reduction in Children and Adolescents. Pediatrics 2011;128:S213 2. NCEP Expert Panel. Circulation 2003;110:227 Current Interpretive Data was last revised on 2017. Testing performed by: [address] [address] HDL 52 >=40 mg/dL SHRUTI Comment: Interpretive Data Ages < or = 19 years Acceptable: >45 mg/dL Borderline low: 40-45 mg/dL Low: <40 mg/dL Ages > or = 20 years Desirable: >or= 60 mg/dL Low: <40 mg/dL Literature References: 1. Expert Panel on Integrated Guidelines for Cardiovascular Health and Risk Reduction in Children and Adolescents. Pediatrics 2011;128:S213 2. NCEP Expert Panel. Circulation 2004;110:227 Current Interpretive Data was last revised on 2017. Testing performed by: [address] [address] LDL, calculated 95 <=129 mg/dL SHRUTI Comment: Interpretive Data Ages < or = 19 years Acceptable: <110 mg/dL Borderline high: 110-129 mg/dL High: >or= 130 mg/dL Ages > or = 20 years Optimal: <100 mg/dL Near optimal: 100-129 mg/dL Borderline high: 130-159 mg/dL High: >160 mg/dL Calculated using the Ja LDL-C estimating equation. This equation was implemented on 2023. Prior to this date LDL-C was estimated using the Friedewald equation. Literature References: 1. Expert Panel on Integrated Guidelines for Cardiovascular Health and Risk Reduction in Children and Adolescents. Pediatrics 2011;128:S213 2. NCEP Expert Panel. Circulation 2004;110:227 3. Ja Caba et al. FRANCISCO JAVIER Cardiol. 2019July 19;5(5):540-548. doi: 10.1001/[email or web address] Current Interpretive Data was last revised on 2023. Testing performed by: [address], [address] Non-HDL Cholesterol 118 mg/dL SHRUTI Comment: Interpretive Data Ages < or = 19 years Acceptable: <120 mg/dL Borderline high: 120-144 mg/dL High: >145 mg/dL Ages > or = 20 years When triglycerides are >200 mg/dL, Non-HDL cholesterol is a secondary target of therapy with treatment goals that are 30 mg/dL greater than the LDL cholesterol target. Literature References: 1. Expert Panel on Integrated Guidelines for Cardiovascular Health and Risk Reduction in Children and Adolescents. Pediatrics 2011;128:S213 2. NCEP Expert Panel. Circulation 2004;110:227 Current Interpretive Data was last revised on 2017. Testing performed by: [address] [address] Chol/HDL ratio 3 SHRUTI Comment:Testing performed by : [address] [address] Blood 01/09/2025 8:42 AM CDT 01/09/2025 9:17 AM CDT us Ximena Schultz FAMILY DAY CARE WORKER LAB BLOOD ORDERABLES Final Result SHRUTI [address] [facility] Department [place] [address] * Comprehensive metabolic panel (01/09/2025 8:42 AM CDT) Sodium 140 135 - 145 mmol/L Comment:Testing performed by : [address] [address] Potassium, pl 4.0 3.3 - 4.9 mmol/L SHRUTI Comment:Testing performed by : [address] [address] Chloride 103 97 - 110 mmol/L SHRUTI Comment:Testing performed by : [address] [address] CO2 26 22 - 32 mmol/L SHRUTI Comment:Testing performed by : [address] [address] Anion gap 11 2 - 15 mmol/L SHRUTI Comment:Testing performed by : [address] [address] BUN 13 6 - 25 mg/dL SHRUTI Comment:Testing performed by : [address] [address] Creatinine 0.88 0.60 - 1.10 mg/dL SHRUTI Comment:Testing performed by : [address] [address] Glucose 106 70 - 199 mg/dL SHRUTI Comment: Interpretive Data Fasting glucose >/= 126 mg/dl is diagnostic for diabetes. Fasting is defined as no caloric intake for at least 8 hours. Fasting glucose between 100 mg/dl to 125 mg/dl is diagnostic of prediabetes. In a patient with classic symptoms of hyperglycemia or hyperglycemic crisis, a random glucose >/= 200 mg/dl is diagnostic for diabetes. In the absence of unequivocal hyperglycemia, results should be confirmed by repeat testing. The classification and Diagnosis of Diabetes Diabetes Care 2021; 46: S19-S40. Current interpretive data was last revised 2022. Testing performed by: [address] [address] Calcium 9.4 8.5 - 10.3 mg/dL SHRUTI Comment:Testing performed by : [address] [address] Bilirubin, total 0.4 0.1 - 1.2 mg/dL SHRUTI Comment:Testing performed by : [address] [address] Protein, pl 6.8 6.5 - 8.5 g/dL SHRUTI Comment:Testing performed by : [address] [address] Albumin 4.3 3.5 - 5.0 g/dL SHRUTI Comment:Testing performed by : [address] [address] Alk phos 68 40 - 130 Units/L SHRUTI Comment:Testing performed by : [address] [address] ALT 16 7 - 45 Units/L SHRUTI Comment:Testing performed by : [address] [address] AST 20 10 - 45 Units/L SHRUTI Comment:Testing performed by : [address] [address] Blood 01/09/2025 8:42 AM CDT 01/09/2025 9:17 AM CDT us Ximena Schultz FAMILY DAY CARE WORKER LAB BLOOD ORDERABLES Final Result Performing Organization Address City/State/[facility] Co nc Phone Number SHRUTI [address] [facility] Department [place] [address] * Dexa Axial Skeleton Bone Density 1 or 2 Site (04/24/2024 9:39 AM COMPUTER TEACHER) Anatomical Region Laterality Modality Body N/A Mammography 04/24/2024 11:0 8 AM COMPUTER TEACHER Narrative 04/24/2024 11:09 AM COMPUTER TEACHER EXAM DESCRIPTION: DEXA AXIAL SKELETON BONE DENSITY 1 OR MORE SITES REASON FOR STUDY: 68 y/o year old F with given history of: hyperparathyroidism. Postmenopausal status. History of prior fracture and glucocorticoid use. Patient takes vitamin-D and calcium. Policy Change Clerks Supervisor/Model: [employer] A (S/N [id number]) Facility LSC value of 0.022 for the AP spine, 0.027 for the femur, and 0.023 for the forearm. CLINICAL INFORMATION: Current height: 66.5 inches Maximum height: 68 inches Weight: 186.6 pounds Risk factors: Prior fracture and glucocorticoid use COMPARISON: None available FINDINGS: AP LUMBAR SPINE L1-L4: Total BMD is 0.878 g/cm2 T-score is -1.5 LEFT HIP: Total BMD is 0.892 g/cm2 T-score is -0.4 Femoral neck BMD is 0.780 g/cm2 T-score is -0.6 Right forearm BMD in the radius 33% is 0.546 g/cm2 T-score is -2.5 FRAX: 10 year risk for a major osteoporotic fracture is 19 %, 10 year risk for a hip fracture is 1.4 % IMPRESSION: Osteoporosis, based on forearm measurement REFERENCE: Bone mineral density: T-Score: Normal (T-score above or = -1.0) Low bone mass (T-score between -1.0 and -2.5) replaces the previously used term osteopenia Osteoporosis (T-score = or below -2.5) Z-Score: Within the expected range for age (Z-score above -2.0) Below the expected range for age (Z-score is -2.0 or below) Please see below follow up recommendations. Medical evaluation for secondary causes of low bone mineral density may be appropriate. FRAX is a World Health Organization validated fracture risk assessment tool that calculates a person's 10 year probability of a major osteoporosis related fracture and hip fracture. According to the National Osteoporosis Foundation guidelines, postmenopausal women and men age 50 or older with low bone mass and a 10 year probability of a major osteoporosis related fracture = or greater than 20% or a 10 year probability of a hip fracture = or greater than 3% should be considered for pharmacological treatment for the prevention of osteoporosis. For further information, including treatment recommendations, please refer to the 2019 ISCD Official Positions (http://www.iscd.org) and the NOF's Clinician's Guide to Prevention and Treatment of Osteoporosis (http://www.nof.org/professionals/clinical-guidelines) THIS IS AN ELECTRONICALLY VERIFIED FINAL REPORT 04/24/2024 11:09 AM - Electronically signed by January Andre M.D. TW: TW Report ID: [id number] Reading Location: [id number] Procedure Note January Andre MD - 04/24/2024 EXAM DESCRIPTION: DEXA AXIAL SKELETON BONE DENSITY 1 OR MORE SITES REASON FOR STUDY: 68 y/o year old F with given history of: hyperparathyroidism. Postmenopausal status. History of prior fractureand glucocorticoid use. Patient takes vitamin-D and calcium. Policy Change Clerks Supervisor/Model: [employer] (S/N [id number]) Facility LSC value of 0.022 for the AP spine, 0.027 for the femur, and0.023 for the forearm. CLINICAL INFORMATION: Current height: 66.5 inches Maximum height: 68 inches Weight: 186.6 pounds Risk factors: Prior fracture and glucocorticoid use COMPARISON: None available FINDINGS: AP LUMBAR SPINE L1-L4: Total BMD is 0.878 g/cm2 T-score is -1.5 LEFT HIP: Total BMD is 0.892 g/cm2 T-score is -0.4 Femoral neck BMD is 0.780 g/cm2 T-score is -0.6 Right forearm BMD in the radius 33% is 0.546 g/cm2 T-score is -2.5 FRAX: 10 year risk for a major osteoporotic fracture is 19 %, 10 year risk for ahip fracture is 1.4 % IMPRESSION: Osteoporosis, based on forearm measurement REFERENCE: Bone mineral density: T-Score: Normal (T-score above or = -1.0) Low bone mass (T-score between -1.0 and -2.5) replaces thepreviously used term osteopenia Osteoporosis (T-score = or below -2.5) Z-Score: Within the expected range for age (Z-score above -2.0) Below the expected range for age (Z-score is -2.0 or below) Please see below follow up recommendations. Medical evaluation forsecondary causes of low bone mineral density may be appropriate. FRAX is a World Health Organization validated fracture risk assessmenttool that calculates a person's 10 year probability of a major osteoporosisrelated fracture and hip fracture. According to the National OsteoporosisFoundation guidelines, postmenopausal women and men age 50 or older with low bonemass and a 10 year probability of a major osteoporosis related fracture = or greater than 20% or a 10 year probability of a hip fracture = or greaterthan 3% should be considered for pharmacological treatment for the preventionof osteoporosis. For further information, including treatment recommendations, please referto the 2019 ISCD Official Positions (http://www.iscd.org) and the NOF's Clinician's Guide to Prevention and Treatment of Osteoporosis (http://www.nof.org/professionals/clinical-guidelines) THIS IS AN ELECTRONICALLY VERIFIED FINAL REPORT 04/24/2024 11:09 AM - Electronically signed by January Andre M.D. TW: TW Report ID: [id number] Reading Location: [place] [address] Luci Padilla FAMILY DAY CARE WORKER IMG DXA PROCEDURES Final Result * Screening Mammogram Bilateral W Amari (03/29/2024 3:09 PM COMPUTER TEACHER) Anatomical Region Laterality Modality Breast Bilateral Mammography Impressions 03/30/2024 12:34 PM COMPUTER TEACHER BI-RADS ATLAS category (overall): 1 - Negative There is no mammographic evidence of malignancy. A 1 year screening mammogram is recommended. The patient has been or will be contacted. We recommend annual screening mammography for women at average risk of breast cancer beginning at age 40, based on guidelines of the [place] [employer] (ACR Practice Parameter for the Performance of Screening and Diagnostic Mammography) and [place] [employer] Obstetric[employer] Gynec[employer]. For women with and elevated risk of breast cancer, please refer to the ACR Practice Parameter for specific screening recommendations. The patient will be entered into a reminder system with a target due date of 1 year for her next screening exam. Narrative 03/30/2024 12:34 PM COMPUTER TEACHER Screening Mammogram Bilateral W Amari: 03/29/24 The study was acquired using full field digital technology and interpreted from soft copy. 2D digital mammographic views, as well as 3D digital tomosynthesis were performed in the CC and MLO projections. This study was resulted using Computer-Aided Detection (CAD). CLINICAL: Screening mammogram, encounter for. No relevant medical history has been documented for this patient. History of breast cancer in Neg Hx. COMPARISONS: 07/24/2022 Breast Imaging Screening Outside Reference 11/19/2020 Breast Imaging Screening Outside Reference 09/06/2019 Breast Imaging US Outside Reference 09/06/2019 Breast Imaging Diagnostic Outside Reference 03/06/2019 Breast Imaging US Outside Reference 03/06/2019 Breast Imaging Diagnostic Outside Reference 08/30/2018 Breast Imaging US Outside Reference 08/30/2018 Breast Imaging Diagnostic Outside Reference 08/18/2018 Breast Imaging Screening Outside Reference BREAST TISSUE: The breasts are heterogeneously dense, which may obscure small masses. FINDINGS: There is no new suspicious finding in either breast on mammogram. us Self Screening Mammogram IMG MAMMO PROCEDURES Fi nal Result * HM COLONOSCOPY (06/30/2022) Historical Provider HEALTH MAINTENANCE Final Result * Hepatitis panel, acute (11/10/2019 6:00 AM CDT) HepBsAg NONREACT NONREACTIVE [facility] Comment: Siemens CentaurXP using VELVET (chemiluminescent immunoassay) technology. NONREACTIVE: IgM antibodies to Hepatitis B Surface antigen not detected. REACTIVE: IgM antibodies to Hepatitis B Surface antigen detected. Reactive results will be confirmed by neutralization testing. HBsAb qn >850.00 mIU/mL [facility] Comment: Siemens CentaurXP using EVLVET (chemiluminescent immunoassay) technology. 9.99 IU/L or less.....NONREACTIVE: IgM antibodies to Hepatitis B Surface antibody are not detected. 10.00 IU/L or greater..REACTIVE: IgM antibodies to Hepatitis B Surface antibody are detected. Hep B core IgM NONREACT NONREACTIVE [facility] Comment: Siemens CentaurXP using VELVET (chemiluminescent immunoassay) technology. NONREACTIVE: IgM antibodies to Hepatitis B Core antigen not detected. EQUIVOCAL: IgM antibodies to Hepatitis B Core antigen may or may not be present. Obtain a new specimen and retest. REACTIVE: IgM antibodies to Hepatitis B Core antigen detected. Hep A IgM NONREACT NONREACTIVE [facility] Comment: Siemens CentaurXP using VELVET (chemiluminescent immunoassay) technology. NONREACTIVE: IgM antibodies to Hepatitis A not detected. This does not exclude possibility of exposure to Hepatitis A or early acute infection. EQUIVOCAL:IgM antibodies to Hepatitis A may or may not be present. Suggest recollection and retest. REACTIVE: Antibodies to Hepatitis A detected. Hep C Ab NONREACT NONREACTIVE [facility] Comment: Siemens CentaurXP using VELVET (chemiluminescent immunoassay) technology. NONREACTIVE: Antibodies to Hepatitis C not detected. This does not exclude early acute Hepatitis C infection, possibility of exposure to Hepatitis C, antibodies below detection limit, or to lack of antibody reactivity to the antigen used in this assay. EQUIVOCAL: Antibodies to Hepatitis C may or may not be present. Sample to be confirmed by real-time PCR method. REACTIVE: Antibodies to Hepatitis C detected.Sample to be confirmed by real-time PCR method. 11/10/2019 6:00 AM CDT 11/10/2019 6:05 AM CDT Narrative Resulting Agency Comment IN us Kunal Fang MD LAB MICROBIOLOGY - NERAL ORDERABLES Final Result [facility] [address] [place] [address], [facility] [phone] from Last 3 Months or Most Recently Relevant to Health Maintenance Additional Health Concerns Active Problems Noted Date Diagnosed Date Problem 1: Problems with health conditions 02/22 Note: Problem 1: Problems with health conditions Onset date 02/19/2022 Problem 1 STATEMENT Pt is challenged with 43 medical/health conditions. Including from [facility] Pts chart: Cardiac & Vasculature, Endocrine & [...] from 5-to-6 on the 1-to-10pt high scale. [facility] Goal/Discharge Criteria: Patient to better adjust to [...] inherent with 43 medical/health conditions. Including from [facility] Pts chart: Cardiac & Vasculature, Endocrine & [...] from 5-to-6 on the 1-to-10pt high scale. [facility] Goal/Discharge Criteria: Patient to better adjust to [...] of the Chest R61 Chronic Excessive Sweating Insurance AETNA MEDICARE GOLD AETNA MEDICARE GOLD Advance Directives For more information, please contact: [phone] Documents on File Type Date Recorded Patient Nuclear Medicine Medical Director Expl anation ADVANCE DIRECTIVE 07/25/2018 12:00 AM POWER OF PROCESS AREA SUPERVISOR FINANCIAL/MEDICAL * Full Code (Latest Code Status on File) Date Activated Date Inactivated Comments 12/30/2020 1:27 PM 12/30/2020 8:07 PM Care Teams Top Lift Scourer Relationship Specialty Start Date End Date Ximena Schultz NP [address] [place], [place] [id number] PCP - General Internal Medicine 01/16/25 Elliott Trivedi MD [address] [facility] [address] [place] [address] Consulting Physician Rheumatology 11/26/20 Samia Barajas MD [address] [place] [address] Referring Physician Neurology 11/26/20 Jarad Cardoza MD [address] [place] [address] Referring Physician Internal Medicine 11/26/20 Power Gaston MD [address] [place] [address] [address] [place] [address] Referring Physician Psychiatry 03/02/24 Sherrie Chase, [facility] [address] [place] [address] City Surveyor Infectious Diseases 03/08/22
--- OUTSIDE RECORDS SUMMARY | 2025-02-13 11:49 | XMS_ITS | Encounter Summary ---
Author Organization [facility] Address [address] [place] [address] Care Team Providers Care Braiding Machine Tender Name Role Phone Rosalie Jones DO Primary Care Provider [phone] Rosalie Jones DO Unavailable [phone] Maria L Rutledge RN Unavailable [phone] Megan Nance MD Primary Care Provider [phone] Encounter Details Date Type Department Care Team (Late st Contact Info) Description 12/07/2019 Acumaticat Message Enc [facility] Family Medicine - [place] [address] [place] [address] Rosalie Jones DO [address] [place] [address] RE: Referral Request Social History Tobacco Use [...] Master's degree (e.g., MA, MS, Abbie, MEd, PAPER STRIPPER, GAIL) 05/25/2018 Comments No Sex and Gender [...] Rule Out 01/21/2020 01/21/2020 01/22/2020 12:05 PM COMPONENT OVERHAUL OPERATOR COVID-19 Confirmed Comment:Resolved as 10 days symptom free for surgery 01/21/2020 01/21/2020 02/20/2020 12:02 PM COMPONENT OVERHAUL OPERATOR documented as of this encounter Care Teams Braiding Machine Tender Relationship Specialty Start Date End Date Rosalie Jones DO [address] [place] [address] PCP - General FAMILY PRACTICE 03/31/18 11/18/20 Megan Nance MD [address] [facility] [address] [place] [address] PCP - General INTERNAL MEDICINE 11/19/20 Rosalie Jones DO [address] [place] [address] FAMILY PRACTICE 03/31/18 11/18/20 Maria L Rutledge, RN [address] [place] [address] Black Puller (Ambulatory) REGISTERED NURSE 11/15/19 11/18/20 documented as of this encounter
--- OUTSIDE RECORDS SUMMARY | 2025-02-13 11:49 | XMS_ITS | Encounter Summary ---
Author Organization [facility] Address [address] [place] [address] Care Team Providers Care Advertising Sales Assistant Name Role Phone Rosalie Jones DO Primary Care Provider [phone] Rosalie Jones DO Unavailable [phone] Maria L Rutledge RN Unavailable [phone] Megan Nance MD Primary Care Provider [phone] Encounter Details Date Type Department Care Team (Late st Contact Info) Description 05/20/2020 Startup Cincyhart Message Enc [facility] Family Medicine - [place] [address] [place] [address] Rosalie Jones DO [address] [place] [address] RE: Medication Questions Social History Tobacco Use Types Packs/Day Years Used Date Smoking Tobacco: Never Smokeless Tobacco: Never Alcohol Use Standard Drinks/Week Comments No 0 (1 standard drink = 0.6 oz pur e alcohol) AUDIT-C Answer Date Recorded Frequency of Alcohol Consumption Never 02/14/2018 Average Number of Drinks Not on file 018 Frequency of Binge Drinking Not on file 01/20 PHQ-2 Answer Date Recorded PHQ-2 Score 1 02/28/2020 Education Answer Date Recorded What is the highest level of school you have completed or the highest degree you have received? 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 Not on file Not on file documented as of this encounter Plan of Treatment Not on file documented as of this encounter Visit Diagnoses Not on filedocumented in this encounter Care Teams Advertising Sales Assistant Relationship Specialty Start Date End Date Rosalie Jones DO [address] [place] [address] PCP - General FAMILY PRACTICE 03/31/18 11/18/20 Megan Nance MD [address] [place] [address] PCP - General INTERNAL MEDICINE 11/19/20 Rosalie Jones DO [address] [place] [address] FAMILY PRACTICE 03/31/18 11/18/20 Maria L Rutledge, RN [address] [place] [address] Construction Craft Laborer (Ambulatory) REGISTERED NURSE 11/15/19 11/18/20 documented as of this encounter
--- OUTSIDE RECORDS SUMMARY | 2025-02-13 11:49 | XMS_ITS | Encounter Summary ---
Author Organization [facility] Address [address] [place] [address] Care Team Providers Care Oracle Soa Consultant Name Role Phone Rosalie Jones DO Primary Care Provider [phone] Rosalie Jones DO Unavailable [phone] Maria L Rutledge RN Unavailable [phone] Megan Nance MD Primary Care Provider Encounter Details Date Type Department Care Team (Late st Contact Info) Description 01/31/2019 Chlorine Genie Message Enc [facility] Family Medicine - [place] [address] [place] [address] Roslaie Jones DO [address] [place] [address] RE: Test Results Social History Tobacco Use Types Packs/Day Years [...] Master's degree (e.g., MA, MS, Abbie, MEd, INSPECTOR CHIEF, GAIL) 05/25/2018 Comments No Sex and Gender [...] Rule Out 01/21/2020 01/21/2020 01/22/2020 12:05 PM TAG STRINGER COVID-19 Confirmed Comment:Resolved as 10 days symptom free for surgery 01/21/2020 01/21/2020 02/20/2020 12:02 PM TAG STRINGER documented as of this encounter Care Teams Oracle Soa Consultant Relationship Specialty Start Date End Date Rosalie Jones DO [address] [place] [address] PCP - General FAMILY PRACTICE 03/31/18 11/18/20 Megan Nance MD [address] [place] [address] PCP - General INTERNAL MEDICINE 11/19/20 Rosalie Jones DO [address] [place] [address] FAMILY PRACTICE 03/31/18 11/18/20 Maria L Rutledge RN [address] [place] [address] Bed Operator (Ambulatory) REGISTERED NURSE 11/15/19 11/18/20 documented as of this encounter
--- OUTSIDE RECORDS SUMMARY | 2025-02-13 11:49 | XMS_ITS | Encounter Summary ---
Author Organization [facility] Address [address] [place] [address] Care Team Providers Care Radiological Defense Officer Name Role Phone Rosalie Jones DO Primary Care Provider Rosalie Jones DO Unavailable [phone] Maria L Rutledge RN Unavailable [phone] Megan Nance MD Primary Care Provider Encounter Details Date Type Department Care Team (Late st Contact Info) Description 06/24/2020 GetO2t Message Enc [facility] Family Medicine - [place] [address] [place] [address] Rosalie Jones DO [address] [place] [address] Referral Request Social History Tobacco Use Types [...] Master's degree (e.g., MA, MS, Abbie, MEd, PATIENT ACCOUNT REPRESENTATIVE, GAIL) 05/25/2018 Comments No Sex and Gender [...] have Coronavirus / COVID-19? No / Unsure 06/16/2020 4:00 PM CDT documented as of this encounter Plan of Treatment Not on file documented as of this encounter Visit Diagnoses Not on filedocumented in this encounter Additional Health Concerns Assessment Noted Time PHQ-9 Depression Total Score: 17 021 8:23 AM CDT documented as of this encounter Care Teams Radiological Defense Officer Relationship Specialty Start Date End Date Rosalie Jones DO [address] [place] [address] PCP - General FAMILY PRACTICE 03/31/18 11/18/20 Megan Nance MD [address] [facility] [address] [place] [address] PCP - General INTERNAL MEDICINE 11/19/20 Rosalie Jones DO [address] [place] [address] FAMILY PRACTICE 03/31/18 11/18/20 Maria L Rutledge RN [address] [place] [address] Orthotics Assistant (Ambulatory) REGISTERED NURSE 11/15/19 11/18/20 documented as of this encounter
--- OUTSIDE RECORDS SUMMARY | 2025-02-13 11:49 | XMS_ITS | Encounter Summary ---
Author Organization [facility] Address [address] [place] [address] Care Team Providers Care Digital Media Specialist Name Role Phone Rosalie Jones DO Primary Care Provider [phone] Rosalie Jones DO Unavailable [phone] Maria L Rutledge RN Unavailable [phone] Megan Nance MD Primary Care Provider [phone] Encounter Details Date Type Department Care Team (Late st Contact Info) Description 03/04/2020 12 Star Survivalt Message Enc [facility] Multispecialty Care - [facility] [address], [address] [place] [address] Og Klein MD Test Results Social History Tobacco Use Types [...] Master's degree (e.g., MA, MS, Abbie, MEd, CORPORATE CONCIERGE, GAIL) 05/25/2018 Comments No Sex and Gender [...] have Coronavirus / COVID-19? No / Unsure 02/29/2020 7:10 PM CHILDREN'S ZOO CARETAKER documented as of this encounter Progress Notes * Anais Mast MA - 03/11/2020 1:[address] Klein saw this patient today in our office DREN'S ZOO CARETAKER * Anais Mast MA - 03/05/2020 11:46 AM CST I gave this to Dr. Klein to review DREN'S ZOO CARETAKER documented in this encounter Plan of Treatment Not on file documented as of this encounter Visit Diagnoses Not on filedocumented in this encounter Care Teams Digital Media Specialist Relationship Specialty Start Date End Date Rosalie Jones DO [address] [place] [address] PCP - General FAMILY PRACTICE 03/31/18 11/18/20 Megan Nance MD [address] [facility] [address] [place] [address] PCP - General INTERNAL MEDICINE 11/19/20 Rosalie Jones DO [address] [place] [address] FAMILY PRACTICE 03/31/18 11/18/20 Maria L Rutledge RN [address] [facility] [address] [place] [address] Board Certified Arts Therapist (Ambulatory) REGISTERED NURSE 8/27/20 8/31/21 documented as of this encounter
--- OUTSIDE RECORDS SUMMARY | 2025-02-13 11:49 | XMS_ITS | Encounter Summary ---
Author Organization [facility] Address [address] [place] [address] Care Team Providers Care Crester Name Role Phone Rosalie Jones DO Primary Care Provider [phone] Rosalie Jones DO Unavailable [phone] Maria L Rutledge RN Unavailable [phone] Megan Nance MD Primary Care Provider [phone] Encounter Details Date Type Department Care Team (Late st Contact Info) Description 07/06/2019 Kinetict Message Enc [facility] Family Medicine - [place] [address] [place] [address] Rosalie Jones DO [address] [place] [address] RE: Question Social History Tobacco Use Types [...] Master's degree (e.g., MA, MS, Abbie, MEd, COBOL PROGRAMMER, GAIL) 05/25/2018 Comments No Sex and Gender [...] Rule Out 01/21/2020 01/21/2020 01/22/2020 12:05 PM CIVIL LAWYER COVID-19 Confirmed Comment:Resolved as 10 days symptom free for surgery 01/21/2020 01/21/2020 02/20/2020 12:02 PM CIVIL LAWYER documented as of this encounter Care Teams Crester Relationship Specialty Start Date End Date Rosalie Jones DO [address] [place] [address] PCP - General FAMILY PRACTICE 03/31/18 11/18/20 Megan Nance MD [address] [place] [address] PCP - General INTERNAL MEDICINE 11/19/20 Rosalie Jones DO [address] [place] [address] FAMILY PRACTICE 03/31/18 11/18/20 Maria L Rutledge RN [address] [place] [address] Shipping Receiving Clerk (Ambulatory) REGISTERED NURSE 11/15/19 11/18/20 documented as of this encounter
--- OUTSIDE RECORDS SUMMARY | 2025-02-13 11:49 | XMS_ITS | Encounter Summary ---
Author Organization [facility] Address [address] [place] [address] Care Team Providers Care Field Service Engineer Name Role Phone Rosalie Jones DO Primary Care Provider [phone] Rosalie Jones DO Unavailable [phone] Maria L Rutledge RN Unavailable [phone] Megan Nance MD Primary Care Provider [phone] Encounter Details Date Type Department Care Team (Late st Contact Info) Description 04/14/2019 [employer] Message Enc [facility] Family Medicine - [place] [address], [address] [place] [address] Rosalie Jones DO [address] [place] [address] Other Social History Tobacco Use Types Packs/Day [...] Master's degree (e.g., MA, MS, Abbie, MEd, LIQUOR CLERK, GAIL) 05/25/2018 Comments No Sex and Gender [...] Rule Out 01/21/2020 01/21/2020 01/22/2020 12:05 PM FISH SKINNING MACHINE FEEDER COVID-19 Confirmed Comment:Resolved as 10 days symptom free for surgery 01/21/2020 01/21/2020 02/20/2020 12:02 PM FISH SKINNING MACHINE FEEDER documented as of this encounter Care Teams Field Service Engineer Relationship Specialty Start Date End Date Rosalie Jones DO [address] [place] [address] PCP - General FAMILY PRACTICE 03/31/18 11/18/20 Megan Nance MD [address] [place] [address] PCP - General INTERNAL MEDICINE 11/19/20 Rosalie Jones DO [address] [place] [address] FAMILY PRACTICE 03/31/18 11/18/20 Maria L Rutledge, RN [address] [place] [address] Language Asst (Ambulatory) REGISTERED NURSE 11/15/19 11/18/20 documented as of this encounter
== END 2025-02-13 11:05 | disposition home or self-care (01) ==
PROVIDERS: PCP Nurse Practitioner; Visit Provider Nurse Practitioner
DX: M25.512 Pain in left shoulder (principal); M25.511 Pain in right shoulder
CPT/HCPCS: 73030